=== PATIENT | female | born 1950 | race Native Hawaiian/Other Pacific Islander ===

== ENCOUNTER 2018-07-12 08:36 | Outpatient (CLI) | payer MEDICAID ==
--- NOTE | 2018-07-12 13:39 | DEXA Report ---
Reason: POSTMENOPAUSAL Procedure Date: 07/12/2018 Accession Number: [id number] / [id number] Procedure: DEX - Dexa Spine and/or Hip CPT Code: FULL RESULT: EXAM: Dexa Spine and/or Hip DATE: 07/12/2018 9:09 AM CLINICAL HISTORY: POSTMENOPAUSAL TECHNIQUE: Dual energy x-ray absorptiometry (DXA) was performed on a [employer] System. Regions measured are the AP Spine, femoral neck, and if needed forearm. COMPARISON: None. In accordance with the International Society for Clinical Densitometry (ISCD) guidelines, data from previous exams may be reanalyzed using current recommendations and techniques. This is done to allow a more accurate basis for comparison with the current study. FINDINGS: The data for the lumbar spine is as follows: BMD (g/cm/cm) T-SCORE Z-SCORE REGION L1 0.606 -4.4 L2 0.683 -4.3 L3 0.933 -2.2 L4 0.942 -2.2 TOTAL 0.798 -3.2 NOTE: All evaluable vertebrae are used for classification The data for the hip is as follows: BMD (g/cm/cm) T-SCORE Z-SCORE REGION Neck 0.665 -2.7 TOTAL 0.619 -3.1 NOTE: The femoral neck or total proximal femur, whichever is lowest, is used for classification. * Denotes significant change at the 95% confidence level. Denotes dissimilar scan types or analysis methods. IMPRESSION: THE WHO CLASSIFICATION BASED ON THE INTERNATIONAL REFERENCE STANDARD IS OSTEOPOROSIS. THE FRACTURE RISK IS HIGH. RECOMMENDATION: Patients with diagnosis of osteoporosis or osteopenia should have regular bone mineral density assessment. For those eligible for Medicare, routine testing is allowed once every 2 years. Testing frequency can be increased for patients who have rapidly progressing disease or for those who are receiving medical therapy to restore bone mass. COMMENT: World Health Organization (WHO) definitions for osteoporosis and osteopenia: NORMAL BMD: T-score at -1.0 or higher, fracture risk is low OSTEOPENIA BMD: T-score between -1.0 and -2.5, fracture risk is increased. OSTEOPOROSIS BMD: T-score at -2.5 or lower, fracture risk is high. National Osteoporosis Foundation recommends: 1. Obtain adequate dietary calcium (at least 1200 mg per day) and vitamin D (400-800 international units per day). 2. Participate, as appropriate, in regular weightbearing and muscle-strengthening exercise. 3. Avoid tobacco use and reduce alcohol and caffeine intake. 4. For more detailed information see the website at www.NOF.org.
== END 2018-07-12 08:37 | disposition home or self-care (01) ==
LOC: DI 08:36
PROVIDERS: ATTEND Family Medicine
DX: M81.0 Age-related osteoporosis without current pathological fracture (principal)
CPT/HCPCS: 77080

== ENCOUNTER 2019-02-19 00:55 | Outpatient (CLI) | payer MEDICAID | END 2019-02-19 00:56 | disposition critical access hospital (66) | LOC: EMS 00:55 | PROVIDERS: ATTEND Surgery | DX: R55 Syncope and collapse (principal) | CPT/HCPCS: A0425; A0427; A0999 ==

== ENCOUNTER 2019-02-19 01:14 | Emergency (ER) | payer MEDICAID ==
[2019-02-19 07:42] VITALS: BP 128/68
[2019-02-19 08:14] LABS: BASOPHILS % (AUTO) 0.7 %; EOSINOPHILS # (AUTO) 0.2 10^3/uL (0.0-0.7); EOSINOPHILS % (AUTO) 4.5 %; HGB - HEMOGLOBIN 11.7 g/dL (12.0-16.0); LYMPHOCYTES # (AUTO) 1.4 10^3/uL (1.5-3.5); MEAN CORPUSCULAR HGB CONC 34.6 g/dL (32.0-36.0); MEAN CORPUSCULAR VOLUME 89.7 fL (81.0-99.0); MEAN PLATELET VOLUME 9.4 fL (7.9-10.8); MONOCYTES # (AUTO) 0.5 10^3/uL (0.0-1.0); NEUTROPHILS # (AUTO) 3.2 10^3/uL (1.5-6.6); NEUTROPHILS % (AUTO) 59.6 %; PLT - PLATELET COUNT 169 10^3/uL (130-450); RED BLOOD COUNT 3.77 10^6/uL (4.20-5.40); RED CELL DISTRIBUTION WIDTH 11.6 % (12.0-15.0); WHITE BLOOD COUNT 5.4 x10^3/uL (4.8-10.8)
[2019-02-19 08:23] LABS: CALCIUM 8.8 mg/dL (8.5-10.3); CREATININE 0.7 mg/dL (0.4-1.0)
[2019-02-19 08:25] LABS: BILIRUBIN,URINE NEGATIVE (NEGATIVE); CLARITY,URINE CLEAR (CLEAR); GLUCOSE, URINE (UA) NEGATIVE (NEGATIVE); KETONES,URINE (UA) NEGATIVE (NEGATIVE); LEUKOCYTE ESTERASE, URINE TRACE (NEGATIVE); NITRITE,URINE NEGATIVE (NEGATIVE); OCCULT BLOOD,URINE NEGATIVE (NEGATIVE); PH,URINE 7.5 PH (5.0-7.5); PROTEIN,URINE NEGATIVE (NEGATIVE); UROBILINOGEN,URINE 0.2 (NORMAL) E.U./dL (NORMAL)
[2019-02-19 08:31] LABS: BACTERIA,URINE Rare /HPF (None Seen); RBC,URINE None Seen /HPF (0-5); SQUAMOUS EPITHELIAL CELL,UR MOD Squamous (<= Few)
--- NOTE | 2019-02-19 09:20 | CT Report ---
Reason: SYNCOPE Procedure Date: 02/19/2019 Accession Number: [id number] / [id number] Procedure: CT - HEAD WO CPT Code: FULL RESULT: EXAM: CT HEAD EXAM DATE: 02/19/2019 03:13 AM. CLINICAL HISTORY: Syncope. COMPARISON: None. TECHNIQUE: Multiaxial CT images were obtained from the foramen magnum to the vertex. Reformats: Sagittal and coronal. IV contrast: None. In accordance with CT protocol optimization, one or more of the following dose reduction techniques were utilized for this exam: automated exposure control, adjustment of mA and/or KV based on patient size, or use of iterative reconstructive technique. FINDINGS: Parenchyma: No intraparenchymal hemorrhage. No evidence of mass, midline shift, or CT findings of acute infarction. Rubio-white differentiation is distinct. Mild diffuse chronic microangiopathic white matter changes are evident. Extraaxial Spaces: Normal for age. No subdural or epidural collections identified. Ventricles: The ventricles and cortical sulci are moderately enlarged, consistent with age-related tissue loss. Sinuses and Orbits: Left-sided phthisis bulbi is present. Postsurgical changes from a cataract extraction are noted in the right globe. The paranasal and mastoid sinuses are not opacified. Bones: No evidence of fracture or calvarial defect. Other: Extensive intracranial atherosclerosis is present. IMPRESSION: Generalized age-related cortical atrophic changes without evidence of acute intracranial abnormality. RADIA
--- NOTE | 2019-02-19 09:21 | XRAY Report ---
Reason: SYNCOPE Procedure Date: 02/19/2019 Accession Number: [id number] / [id number] Procedure: XR - Chest 2 View X-Ray CPT Code: 93480 FULL RESULT: EXAM: CHEST RADIOGRAPHY EXAM DATE: 02/19/2019 05:46 AM. CLINICAL HISTORY: Syncope. COMPARISON: None. TECHNIQUE: 2 views. FINDINGS: Lungs/Pleura: No alveolar consolidation or pleural effusion seen. No pneumothorax. Mediastinum: Heart size is normal. Aortic atherosclerosis. Other: Osteopenia. Calcific tendinitis in the right rotator cuff. IMPRESSION: 1. No acute abnormality seen in the chest. RADIA
== END 2019-02-19 07:42 | disposition home or self-care (01) ==
LOC: ED 01:14
DX: E87.1 Hypo-osmolality and hyponatremia (principal); R55 Syncope and collapse; H02.402 Unspecified ptosis of left eyelid
CPT/HCPCS: 70450; 71046; 80048; 81001; 81003; 84484; 85025; 93005; 99282; 99283

== ENCOUNTER 2021-09-17 04:32 | Outpatient (CLI) | payer MEDICAID | END 2021-09-17 04:33 | disposition critical access hospital (66) | LOC: EMS 04:32 | DX: R41.82 Altered mental status, unspecified (principal); R53.83 Other fatigue; X31.XXXA Exposure to excessive natural cold, initial encounter | CPT/HCPCS: A0425; A0429; A0999 ==

== ENCOUNTER 2021-09-17 04:53 | Emergency (ER) | payer MEDICAID ==
[2021-09-17 05:14] VITALS: BP 181/95
--- NOTE | 2021-09-17 05:35 | ED Physician Documentation ---
PD HPI ALTERED MENTAL STATUS - Stated complaint Stated Complaint: AMS - Chief complaint Chief Complaint: MHE - History obtained from History obtained from: EMS - History of Present Illness Timing - onset: Unknown Quality / character: Confused - Additional information Additional information: BIBA. Per EMS report, someone called 911 when they noticed patient outside on sidewalk seemingly confused. Police assessed patient then called EMS. Patient is nonverbal for my HPI. She has no ID and thus cannot contribute to HPI/ROS. Between police and EMS, they were able to get patient to say her name is Amy. After repeated attempts, EMS was able to get patient to say her last name but they could only discern the first syllable. Patient is in NAD, awake, but does not verbalize, does not follow commands. She is calm. Review of Systems Unable to obtain: AMS PD PAST MEDICAL HISTORY - Past Medical History Other Past Medical History: unknown - Present Medications Home Medications: Ambulatory Orders Medication Instructions Recorded Confirmed cephALEXin [Keflex] 500 mg PO Q6H #20 cap 09/18/21 - Allergies Allergies/Adverse Reactions: Allergies Allergy/AdvReac Type Severity Reaction Status Date / Time Unable to Assess Allergy Verified 09/17/21 07:00 PD ED PE NORMAL - Vitals Vital signs reviewed: Yes (a) - General General: Other (awake, alert, nonverbal, does not follow commands) - HEENT HEENT: Atraumatic, Other (left eye: completely opqaue cornea) - Neck Neck: Supple, no meningeal sign - Cardiac Cardiac: RRR, No murmur - Respiratory Respiratory: No respiratory distress, Clear bilaterally - Abdomen Abdomen: Soft, Non tender - Derm Derm: Normal color, Warm and dry - Extremities Extremities: No edema Results - Vitals Vitals: Oxygen O2 Source Room air - Labs Labs: Microbiology 09/17/21 08:33 Urine Culture - Preliminary Urine,Clean Catch Escherichia Coli Laboratory Tests 09/17/21 09/17/21 09/17/21 06:50 06:50 08:33 WBC 6.3 L RBC 4.16 Hgb 13.0 L Hct 38.0 L MCV 91.3 L MCH 31.3 MCHC 34.2 RDW 12.8 Plt Count 286 MPV 9.2 Neut # (Auto) 4.7 L Lymph # (Auto) 1.1 L [place] # (Auto) 0.3 Eos # (Auto) 0.1 Baso # (Auto) 0.0 Absolute Nucleated RBC 0.00 Nucleated RBC % 0.0 Sodium 129 L Potassium 4.0 Chloride 92 L Carbon Dioxide 26 Anion Gap 11.0 BUN 21 H Creatinine 0.9 Estimated GFR (MDRD) 61 L Glucose 76 Calcium 9.7 Total Bilirubin 0.9 AST 34 ALT 25 Alkaline Phosphatase 41 L Total Protein 8.1 Albumin 4.5 Globulin 3.6 Albumin/Globulin Ratio 1.3 Lipase 50 Urine Color YELLOW Urine Clarity CLEAR Urine pH 7.5 Ur Specific [place] 1.015 Urine Protein NEGATIVE Urine Glucose (UA) NEGATIVE Urine Ketones NEGATIVE Urine Occult Blood NEGATIVE Urine Nitrite POSITIVE H Urine Bilirubin NEGATIVE Urine Urobilinogen 0.2 (NORMAL) Ur Leukocyte Esterase LARGE H Urine RBC 0-5 Urine WBC >25 H Urine WBC Clumps PRESENT Ur Squamous Epith Cells FEW Squamous Urine Bacteria Few Ur Microscopic Review INDICATED Urine Culture Comments INDICATED PD MEDICAL DECISION MAKING - ED course Complexity details: considered differential, d/w family ED course: Patient is in NAD, wearing weather-appropriate coat but likely was outside for some time, given how cool to touch she feels when she first arrives. She is nonverbal for me. Using the first name and first syllable of last name (using different possibilities, such as Cam, Theo, Omar), I was eventually able to find Amy Aguayo in [employer]. Unfortunately, there is no patient photo nor photo ID scanned in. There is only one ED visit and this was when [employer] was down. Luckily, the hand-written note is scanned in and indicates similar mental status as well as the left eye opacity. I tried to contact the (contact) number in [employer] which indicates it is the nieces number. Unfortunately, the male who answered the phone says the route driver salesperson is not at this number and he does not know who this patient is. Patient is held in ED and in the morning, patients niece arrives to ED. She had been at work when family contacted her to tell her patient had gone missing from where they live. Niece contacted police who told her that patient is in our ED. Niece tells me that patient is acting appropriately for her baseline and niece does not see any unusual behavior or indications that she is in pain. Niece says patient has dementia and this is her baseline. She is happy to take her back home Departure - Departure Disposition: Home, Self Care Clinical Impression: UTI (urinary tract infection) Dementia Qualifiers: Dementia type: unspecified type Dementia behavioral disturbance: without behavioral disturbance Qualified Code(s): F03.90 - Unspecified dementia without behavioral disturbance Condition: Good Instructions: ED Confusion Follow-Up: Tiffanie Atkinson MD [Primary Care Provider] - Prescriptions: cephALEXin [Keflex] 500 mg PO Q6H #20 cap Discharge Date/Time: 09/17/21 08:44
[2021-09-17 06:56] LABS: BASOPHILS % (AUTO) 0.5 %; EOSINOPHILS # (AUTO) 0.1 10^3/uL (0.0-2.0); EOSINOPHILS % (AUTO) 1.6 %; LYMPHOCYTES # (AUTO) 1.1 10^3/uL (2.5-10.5); LYMPHOCYTES % (AUTO) 16.8 %; MEAN CORPUSCULAR HEMOGLOBIN 31.3 pg (28.0-40.0); MEAN CORPUSCULAR HGB CONC 34.2 g/dL (32.0-36.0); MEAN CORPUSCULAR VOLUME 91.3 fL (94.0-114.0); MEAN PLATELET VOLUME 9.2 fL; MONOCYTES # (AUTO) 0.3 10^3/uL (0.0-3.5); MONOCYTES % (AUTO) 5.1 %; NEUTROPHILS # (AUTO) 4.7 10^3/uL (6.0-23.5); NEUTROPHILS % (AUTO) 75.7 %; PLT - PLATELET COUNT 286 10^3/uL (130-450); RED BLOOD COUNT 4.16 10^6/uL (4.10-6.70); RED CELL DISTRIBUTION WIDTH 12.8 % (12.0-15.0); WHITE BLOOD COUNT 6.3 x10^3/uL (9.0-30.0)
[2021-09-17 07:12] LABS: ALBUMIN 4.5 g/dL (3.2-5.5); ALBUMIN/GLOBULIN RATIO 1.3 (1.0-2.2); BILIRUBIN,TOTAL 0.9 mg/dL (0.2-1.0); CALCIUM 9.7 mg/dL (8.5-10.3); CREATININE 0.9 mg/dL (0.4-1.0); TOTAL PROTEIN 8.1 g/dL (6.7-8.2)
[2021-09-17 09:17] LABS: BILIRUBIN,URINE NEGATIVE (NEGATIVE); GLUCOSE, URINE (UA) NEGATIVE (NEGATIVE); KETONES,URINE (UA) NEGATIVE (NEGATIVE); LEUKOCYTE ESTERASE, URINE LARGE (NEGATIVE); NITRITE,URINE POSITIVE (NEGATIVE); OCCULT BLOOD,URINE NEGATIVE (NEGATIVE); PH,URINE 7.5 PH (5.0-7.5); PROTEIN,URINE NEGATIVE (NEGATIVE); UROBILINOGEN,URINE 0.2 (NORMAL) E.U./dL (NORMAL)
[2021-09-17 09:22] LABS: CLARITY,URINE CLEAR (CLEAR)
[2021-09-17 09:31] LABS: BACTERIA,URINE Few /HPF (None Seen); RBC,URINE 0-5 /HPF (0-5); SQUAMOUS EPITHELIAL CELL,UR FEW Squamous (<= Few); WBC CLUMPS,URINE PRESENT; WBC,URINE >25 /HPF (0-5)
--- NOTE | 2021-09-18 13:20 | ED Physician Documentation ---
ED Addendum - Addendum Addendum: 09/18/21 13:20 Urine culture is positive for an E. coli UTI. Will place on Keflex. Spoke with the patient's daughter, Lashell. The prescription [facility] be [facility] in [place]. Departure - Departure Disposition: 01 Home, Self Care Clinical Impression: Dementia Qualifiers: Dementia type: unspecified type Dementia behavioral disturbance: without behavioral disturbance Qualified Code(s): F03.90 - Unspecified dementia without behavioral disturbance UTI (urinary tract infection) Qualifiers: Urinary tract infection type: acute cystitis Hematuria presence: without hematuria Qualified Code(s): N30.00 - Acute cystitis without hematuria Condition: Good Instructions: ED Confusion Follow-Up: Tiffanie Atkinson MD [Primary Care Provider] - Prescriptions: cephALEXin [Keflex] 500 mg PO Q6H #20 cap Discharge Date/Time: 09/17/21 08:44
== END 2021-09-17 08:44 | disposition home or self-care (01) ==
LOC: EDBD → ED 04:53 → MERGE 04:53 → ED 08:44
DX: N39.0 Urinary tract infection, site not specified (principal); F03.90 Unspecified dementia, unspecified severity, without behavioral disturbance, psychotic disturbance, mood disturbance, and anxiety
CPT/HCPCS: 36415; 80053; 81001; 81003; 83690; 85025; 87086; 87181; 99281; 99283

== ENCOUNTER 2023-08-16 14:03 | Outpatient (CLI) | payer MEDICAID | END 2023-08-16 14:04 | disposition critical access hospital (66) | LOC: EMS 14:03 | DX: R41.0 Disorientation, unspecified (principal); R25.9 Unspecified abnormal involuntary movements | CPT/HCPCS: A0425; A0429; A0999 ==

== ENCOUNTER 2023-08-16 14:24 | Emergency (ER) | payer MEDICAID ==
[2023-08-16 15:10] LABS: BASOPHILS % (AUTO) 0.3 %; EOSINOPHILS % (AUTO) 0.2 %; HCT - HEMATOCRIT 35.2 % (37.0-47.0); HGB - HEMOGLOBIN 11.9 g/dL (12.0-16.0); LYMPHOCYTES # (AUTO) 0.4 10^3/uL (1.5-3.5); LYMPHOCYTES % (AUTO) 3.5 %; MEAN CORPUSCULAR HGB CONC 33.8 g/dL (32.0-36.0); MEAN CORPUSCULAR VOLUME 91.7 fL (81.0-99.0); MEAN PLATELET VOLUME 10.9 fL (7.9-10.8); MONOCYTES # (AUTO) 0.5 10^3/uL (0.0-1.0); MONOCYTES % (AUTO) 4.5 %; NEUTROPHILS # (AUTO) 10.9 10^3/uL (1.5-6.6); NEUTROPHILS % (AUTO) 91.1 %; PLT - PLATELET COUNT 150 10^3/uL (130-450); RED BLOOD COUNT 3.84 10^6/uL (4.20-5.40); RED CELL DISTRIBUTION WIDTH 12.6 % (12.0-15.0)
--- NOTE | 2023-08-16 15:30 | ED Physician Documentation ---
History of Present Illness - Stated complaint Stated Complaint: AMS - Chief complaint Chief Complaint: General - History obtained from History obtained from: Family - History of Present Illness Timing: Today - Additonal information Additional information: Patient is a 73-year-old female who lives at home with family. Has severe dementia. Family states that today patient has been sleeping more than usual today and was harder to wake up from her nap. The patient also reportedly said that she had pain but could not say where any of the pain was. The family does not believe that she has fallen or injured herself. No fevers. No chills. No vomiting. No diarrhea. She is a diabetic and her blood sugar was 370. Family states she has been taking her medications as prescribed. No falls. No trauma. Nothing makes it better or worse. Family states the patient still is yawning and sleeping more than usual upon arrival to the emergency department. Review of Systems Unable to obtain: Dementia Constitutional: denies: Fever GI: denies: Vomiting Skin: denies: Rash PD PAST MEDICAL HISTORY - Past Medical History Past Medical History: Yes Cardiovascular: Hypertension, High cholesterol Neuro: Dementia Endocrine/Autoimmune: Type 2 diabetes - Present Medications Home Medications: Ambulatory Orders Medication Instructions Recorded Confirmed cephALEXin [Keflex] 500 mg PO Q6H #20 cap 09/18/21 Cefdinir 300 mg PO BID #20 cap 08/16/23 - Allergies Allergies/Adverse Reactions: Allergies Allergy/AdvReac Type Severity Reaction Status Date / Time No Known Drug Allergies Allergy Verified 08/16/23 14:40 - Social History Does the pt smoke?: No Smoking Status: Never smoker Does the pt drink ETOH?: No Does the pt have substance abuse?: No - Immunizations Immunizations are current?: Yes - POLST Patient has POLST: No PD ED PE NORMAL - Vitals Vital signs reviewed: Yes - General General: Other (Sleeping, easily arousable. Opens her eyes, mumbles words and falls back asleep) - HEENT HEENT: Atraumatic, PERRL, Other (Dry lips and tongue) - Neck Neck: Supple, no meningeal sign - Cardiac Cardiac: RRR - Respiratory Respiratory: No respiratory distress, Clear bilaterally - Abdomen Abdomen: Soft, Other (Mild diffuse tenderness to palpation. No peritoneal signs) - Derm Derm: Warm and dry - Extremities Extremities: Other (Moves all extremities) - Neuro Neuro: Other (Sleeping but easily arousable.) - Psych Psych: Normal mood, Normal affect Results - Vitals Vitals: Vital Signs - 24 hr 08/16/23 08/16/23 08/16/23 14:30 15:22 16:42 Temperature 36.9 C 37.7 C 36.6 C Heart Rate 89 83 Respiratory 20 18 Rate Blood Pressure 167/154 H O2 Saturation 96 98 08/16/23 18:36 Temperature 36.3 C L Heart Rate 77 Respiratory 15 Rate Blood Pressure 157/94 H O2 Saturation 96 Oxygen O2 Source Room air - EKG (time done) 1511 EKG releavant findings:: EKG personally interpreted by author of this note. Relevant findings are: Rate: Rate (enter#) (88) Rhythm: NSR [place]: Normal Intervals: Normal MO QRS: Normal, LVH Ischemia: T wave inversion (V4 to V5), Other (LVH with repol) - Labs Labs: Laboratory Tests 08/16/23 08/16/23 08/16/23 14:47 14:47 15:36 WBC 12.0 H RBC 3.84 L Hgb 11.9 L Hct 35.2 L MCV 91.7 MCH 31.0 MCHC 33.8 RDW 12.6 Plt Count 150 MPV 10.9 H Neut # (Auto) 10.9 H Lymph # (Auto) 0.4 L [place] # (Auto) 0.5 Eos # (Auto) 0.0 Baso # (Auto) 0.0 Absolute Nucleated RBC 0.00 Nucleated RBC % 0.0 Sodium 132 L Potassium 3.9 Chloride 95 L Carbon Dioxide 29 Anion Gap 8.0 BUN 16 Creatinine 1.0 Estimated GFR (MDRD) 54 L Glucose 383 H Calcium 9.5 Total Bilirubin 0.7 AST 41 ALT 63 H Alkaline Phosphatase 145 H Total Protein 7.5 Albumin 4.1 Globulin 3.4 Albumin/Globulin Ratio 1.2 Lipase 25 Urine Color Urine Clarity Urine pH Ur Specific [place] Urine Protein Urine Glucose (UA) Urine Ketones Urine Occult Blood Urine Nitrite Urine Bilirubin Urine Urobilinogen Ur Leukocyte Esterase Urine RBC Urine WBC Urine WBC Clumps Ur Squamous Epith Cells Urine Bacteria Ur Microscopic Review Urine Culture Comments Nasal Adenovirus (PCR) NOT DETECTED Nasal B. parapertussis DNA (PCR) NOT DETECTED Nasal Coronavir 229E PCR NOT DETECTED Nasal Coronavir HKU1 PCR NOT DETECTED Nasal Coronavir NL63 PCR NOT DETECTED Nasal Coronavir OC43 PCR NOT DETECTED Nasal Enterovir/Rhinovir PCR NOT DETECTED Nasal Influenza B PCR NOT DETECTED Nasal Influenza A PCR NOT DETECTED Nasal Parainfluen 1 PCR NOT DETECTED Nasal Parainfluen 2 PCR NOT DETECTED Nasal Parainfluen 3 PCR NOT DETECTED Nasal Parainfluen 4 PCR NOT DETECTED Nasal RSV (PCR) NOT DETECTED Nasal B.pertussis DNA PCR NOT DETECTED Nasal C.pneumoniae (PCR) NOT DETECTED Dylan Human Metapneumo PCR NOT DETECTED Nasal M.pneumoniae (PCR) NOT DETECTED Nasal SARS-CoV-2 (PCR) NOT DETECTED 08/16/23 16:34 WBC RBC Hgb Hct MCV MCH MCHC RDW Plt Count MPV Neut # (Auto) Lymph # (Auto) [place] # (Auto) Eos # (Auto) Baso # (Auto) Absolute Nucleated RBC Nucleated RBC % Sodium Potassium Chloride Carbon Dioxide Anion Gap BUN Creatinine Estimated GFR (MDRD) Glucose Calcium Total Bilirubin AST ALT Alkaline Phosphatase Total Protein Albumin Globulin Albumin/Globulin Ratio Lipase Urine Color YELLOW Urine Clarity SL. CLOUDY Urine pH 7.0 Ur Specific [place] 1.010 Urine Protein NEGATIVE Urine Glucose (UA) >=1000 H Urine Ketones TRACE Urine Occult Blood TRACE-INTA Urine Nitrite NEGATIVE Urine Bilirubin NEGATIVE Urine Urobilinogen 0.2 (NORMAL) Ur Leukocyte Esterase SMALL H Urine RBC 3 Urine WBC 11-25 H Urine WBC Clumps PRESENT Ur Squamous Epith Cells NONE SEEN Urine Bacteria Many H Ur Microscopic Review INDICATED Urine Culture Comments INDICATED Nasal Adenovirus (PCR) Nasal B. parapertussis DNA (PCR) Nasal Coronavir 229E PCR Nasal Coronavir HKU1 PCR Nasal Coronavir NL63 PCR Nasal Coronavir OC43 PCR Nasal Enterovir/Rhinovir PCR Nasal Influenza B PCR Nasal Influenza A PCR Nasal Parainfluen 1 PCR Nasal Parainfluen 2 PCR Nasal Parainfluen 3 PCR Nasal Parainfluen 4 PCR Nasal RSV (PCR) Nasal B.pertussis DNA PCR Nasal C.pneumoniae (PCR) Dylan Human Metapneumo PCR Nasal M.pneumoniae (PCR) Nasal SARS-CoV-2 (PCR) - Rads (name of study) head ct Relevant Findings:: Final report received, See rad report ct abd/pelvis Relevant Findings:: Final report received, See rad report PD Medical Decision Making - ED course Complexity details: reviewed results, re-evaluated patient, considered differential, d/w family ED course: Patient received IV fluids in the emergency department. She also received IV Rocephin for UTI. She appears to be back to her normal baseline. She is awake, sitting up eyes open. Family confirms this is her normal baseline. No acute findings on head CT or CT of the abdomen pelvis. We will continue the antibiotics at home. Appears that her altered mental status is likely secondary to her UTI. No evidence of sepsis. Family counseled regarding signs and symptoms for which I believe and urgent re-evaluation would be necessary. Family with good understanding of and agreement to plan and is comfortable going home at this time This document was made in part using voice recognition software. While efforts are made to proofread this document, sound alike and grammatical errors may occur. Patient is not hypotensive. No fever. Departure - Departure Disposition: Home, Self Care Clinical Impression: Dehydration UTI (urinary tract infection) Qualifiers: Urinary tract infection type: acute cystitis Hematuria presence: without hematuria Qualified Code(s): N30.00 - Acute cystitis without hematuria Condition: Good Instructions: ED Dehydration, ED UTI Cystitis Female Follow-Up: Tiffanie Atkinson MD [Primary Care Provider] - Within 1 week Prescriptions: Cefdinir 300 mg PO BID #20 cap Comments: Your prescription was sent to [facility] in [facility]. Please take all antibiotics until gone. Please follow-up with your doctor for further care. You are given IV fluids and IV Rocephin which is an antibiotic here tonight. You appear improved. There are no acute findings on your head CT. Your abdominal and pelvis CT is consistent with a bladder infection and constipation. Incompletely imaged 0.5 cm nodular density right lower lobe. Recommend outpatient chest CT for further characterization. Forms: PCP List Discharge Date/Time: 08/16/23 18:50
[2023-08-16 15:38] LABS: ALBUMIN 4.1 g/dL (3.2-5.5); ALBUMIN/GLOBULIN RATIO 1.2 (1.0-2.2); BILIRUBIN,TOTAL 0.7 mg/dL (0.2-1.0); CALCIUM 9.5 mg/dL (8.5-10.3); POTASSIUM 3.9 mmol/L (3.5-4.5); TOTAL PROTEIN 7.5 g/dL (6.4-8.9)
[2023-08-16] MEDS: SODIUM CHLORIDE 0.9% 1,000 ML IV STA (15:39)
[2023-08-16] MEDS: iohexoL-300 100 ML VIAL IVP ONE (16:06)
[2023-08-16 16:32] LABS: B. PARAPERTUSSIS- RESP PCR PAN NOT DETECTED; B. PERTUSSIS- RESP PCR PANEL NOT DETECTED; C. PNEUMONIAE- RESP PCR PANEL NOT DETECTED; CORONAVIRUS 229E-RESP PCR NOT DETECTED; CORONAVIRUS HKU1-RESP PCR NOT DETECTED; CORONAVIRUS NL63-RESP PCR NOT DETECTED; CORONAVIRUS OC43-RESP PCR NOT DETECTED; HUMAN METAPNEUMOVIRUS NOT DETECTED; INFLUENZA A- RESP PCR PANEL NOT DETECTED; INFLUENZA B - RESP PCR PANEL NOT DETECTED; M. PNEUMONIAE- RESP PCR PANEL NOT DETECTED; PARAINFLUENZA VIRUS 1 NOT DETECTED; PARAINFLUENZA VIRUS 2 NOT DETECTED; PARAINFLUENZA VIRUS 3 NOT DETECTED; PARAINFLUENZA VIRUS 4 NOT DETECTED; RHINOVIRUS/ENTEROVIRUS NOT DETECTED; RSV- RESP PCR PANEL NOT DETECTED; SARS-CoV-2 -RESP PCR PANEL NOT DETECTED
--- NOTE | 2023-08-16 16:35 | CT Report ---
PROCEDURE: HEAD WO INDICATIONS: altered mental status TECHNIQUE: Noncontrast 4.5 mm thick angled axial sections acquired from the foramen magnum to the vertex. For r adiation dose reduction, the following was used: automated exposure control, adjustment of mA and/or kV according to patient size. COMPARISON: CT head 02/19/2019. FINDINGS: Image quality: Excellent. CSF spaces: Basal cisterns are patent. No extra-axial fluid collections. Ventricles are normal in size and shape. Brain: No midline shift. No intracranial masses or hemorrhage. Age-related global volume loss and c hronic microvascular ischemic changes. Intracranial atherosclerotic vascular calcifications. Rubio-wh ite matter interface is normal. Skull and face: Calvarium and visualized facial bones are intact, without suspicious lesions. Left globe phthisis bulbi, stable. Sinuses: Visualized sinuses and mastoids are clear. IMPRESSION: No acute intracranial pathology. Reviewed by: Ravi Woodard MD on 08/16/2023 4:33 PM PST Approved by: Ravi Woodard MD on 08/16/2023 4:33 PM PST Station ID: [id number]
[2023-08-16 17:00] LABS: BILIRUBIN,URINE NEGATIVE (NEGATIVE); GLUCOSE, URINE (UA) >=1000 mg/dL (NEGATIVE); KETONES,URINE (UA) TRACE mg/dL (NEGATIVE); LEUKOCYTE ESTERASE, URINE SMALL (NEGATIVE); NITRITE,URINE NEGATIVE (NEGATIVE); OCCULT BLOOD,URINE TRACE-INTA (NEGATIVE); PROTEIN,URINE NEGATIVE (NEGATIVE); UROBILINOGEN,URINE 0.2 (NORMAL) E.U./dL (NORMAL)
[2023-08-16 17:07] LABS: CLARITY,URINE SL. CLOUDY (CLEAR)
[2023-08-16 17:16] LABS: BACTERIA,URINE Many /HPF (None Seen); RBC,URINE 3 /HPF (0-5); SQUAMOUS EPITHELIAL CELL,UR NONE SEEN (<= Few); WBC CLUMPS,URINE PRESENT
[2023-08-16] MEDS: cefTRIAXone 1 GM VIAL IVP STA (17:37)
--- NOTE | 2023-08-16 18:22 | CT Report ---
PROCEDURE: ABDOMEN/PELVIS W INDICATIONS: diffuse abd pain CONTRAST: 75ml omni 300 TECHNIQUE: After the administration of intravenous contrast, 5 mm thick sections acquired from the diaphragms to the symphysis. 5 mm thick coronal and sagittal reformats were acquired. For radiation dose reducti on, the following was used: automated exposure control, adjustment of mA and/or kV according to rhianna ent size. COMPARISON: None FINDINGS: Image quality: Diagnostic. Lung bases and heart: Incompletely imaged 1.5 cm nodular density in the right lower lobe. Heart size is normal. Atherosclerotic calcifications. Liver: Hepatic steatosis. Gallbladder and biliary tree: Surgically absent. No biliary dilation, accounting for post-cholecystec enzo state. Spleen: No splenomegaly. Pancreas: No pancreatic ductal dilation. Adrenals: No adrenal nodule. Kidneys and ureters: Right kidney is normal in appearance. No hydronephrosis. No cystic lesion which requires follow up. There is mild atrophy of the left kidney. Somewhat striated appearance of renal c ortical enhancement of the left kidney. Minimal prominence of the left renal pelvis without hydroneph rosis. No significant perinephric stranding on the left. Bowel and peritoneum: There is a very large amount of fecal material seen throughout the distended co denia. Multiple fluid-filled loops of small bowel seen throughout the abdomen without evidence for smal l bowel obstruction. Lymph nodes: No central or retroperitoneal adenopathy. Vessels: No infrarenal aortic aneurysm. Moderate atherosclerotic vascular calcifications. PELVIS Reproductive organs: The uterus appears to be displaced to the left with likely calcified uterine fib roids. Bladder: Urinary bladder is moderately distended. Pelvic lymph nodes: No pelvic adenopathy by size criteria. Bones: Diffuse osteopenia. Age-indeterminate but likely chronic compression fractures involving the T 12, L2, and L3 vertebral bodies. Multilevel spondylosis. Other: No significant ventral or inguinal hernia. IMPRESSION: 1. Large amount of fecal burden seen throughout the descending colon. Findings are likely related to constipation. No acute inflammatory changes. 2. Moderate urinary bladder distention. There is suggestion of mild striated renal cortical enhanceme nt of the left kidney possibly related to pyelonephritis if clinically appropriate. No hydronephrosis identified. Recommend laboratory correlation. 3. Incompletely imaged 0.5 cm nodular density right lower lobe. Recommend outpatient chest CT for fur ther characterization. 4. Status post cholecystectomy. 5. Atherosclerosis. Reviewed by: Nuno Escobedo MD on 08/16/2023 6:21 PM PST Approved by: Nuno Escobedo MD on 08/16/2023 6:21 PM PST Station ID: [id number]
[2023-08-16 18:39] VITALS: BP 157/94; O2SAT 96
== END 2023-08-16 18:50 | disposition home or self-care (01) ==
LOC: EDUNIT# → ED 14:24
DX: N30.00 Acute cystitis without hematuria (principal); B96.1 Klebsiella pneumoniae [K. pneumoniae] as the cause of diseases classified elsewhere; E86.0 Dehydration; F03.C0 Unspecified dementia, severe, without behavioral disturbance, psychotic disturbance, mood disturbance, and anxiety; I10 Essential (primary) hypertension; E78.00 Pure hypercholesterolemia, unspecified; E11.9 Type 2 diabetes mellitus without complications; Z11.52 Encounter for screening for COVID-19
CPT/HCPCS: 36415; 70450; 74177; 80053; 81001; 83690; 85025; 87077; 87086; 87181; 87633; 93005; 96361; 96374; 99283; 99284; Q9967; 81003

== ENCOUNTER 2023-09-19 14:58 | Outpatient (CLI) | payer MEDICAID ==
--- NOTE | 2023-09-27 15:55 | Mammography Report ---
BILATERAL DIGITAL SCREENING MAMMOGRAM 3D/2D: 09/19/2023 CLINICAL: Routine screening. Comparison is made to exam dated: 12/26/2017 mammogram - [facility]. There are scattered areas of fibroglandular density in both breasts (category b / 25%-50% glandular t issue). There is an asymmetry in the right breast middle depth central to the nipple seen on the mediolateral oblique view only. No other significant masses, calcifications, or other findings are seen in either breast. IMPRESSION: INCOMPLETE: NEEDS ADDITIONAL IMAGING EVALUATION The asymmetry in the right breast is indeterminate. Additional views with possible ultrasound are re commended. Based on the Tyrer Cuzick model (a risk assessment model) the patient's lifetime risk is 2.9% and her 10 year risk is 2.9%. According to the ACR, ACS, and NCCN guidelines, an annual breast MRI exam bigg g with mammogram is recommended if the patients lifetime risk is 20% or greater. This exam was interpreted at Station ID: [id number]. NOTE: For mammograms, a report in lay terms will be sent to the patient. Approximately 15% of breast malignancies will not be visualized mammographically. In the management of a palpable breast mass, a negative mammogram must not discourage biopsy of a clinically suspicious lesion. Electronically Signed By: Baron Meza M.D. lc/:09/27/2023 10:43:57 ACR BI-RADS Category 0: Incomplete 3340F PARENCHYMAL PATTERN: (A) - The breast(s) demonstrate(s) scattered fibroglandular densities. BI-RADS CATEGORY: (0) - 0 Mammo and [place] [id number] Immediate follow-up LATERALITY: (B)
== END 2023-09-19 14:59 | disposition home or self-care (01) ==
LOC: DI.N 14:58
DX: Z12.31 Encounter for screening mammogram for malignant neoplasm of breast (principal); R92.323 Mammographic fibroglandular density, bilateral breasts; R92.8 Other abnormal and inconclusive findings on diagnostic imaging of breast

== ENCOUNTER 2023-09-21 08:00 | Outpatient (CLI) | payer MEDICAID ==
[2023-09-21 17:57] LABS: BILIRUBIN,URINE NEGATIVE (NEGATIVE); GLUCOSE, URINE (UA) 250 mg/dL (NEGATIVE); KETONES,URINE (UA) NEGATIVE (NEGATIVE); LEUKOCYTE ESTERASE, URINE LARGE (NEGATIVE); NITRITE,URINE POSITIVE (NEGATIVE); OCCULT BLOOD,URINE SMALL (NEGATIVE); PROTEIN,URINE NEGATIVE (NEGATIVE); UROBILINOGEN,URINE 0.2 (NORMAL) E.U./dL (NORMAL)
[2023-09-21 18:28] LABS: CLARITY,URINE HAZY (CLEAR); RBC,URINE TNTC /HPF (0-5); WBC,URINE >25 /HPF (0-5)
[2023-09-21 18:30] LABS: SQUAMOUS EPITHELIAL CELL,UR FEW Squamous (<= Few)
[2023-09-21 18:32] LABS: BACTERIA,URINE Many /HPF (None Seen)
== END 2023-09-21 23:59 | disposition home or self-care (01) ==
LOC: LAB.R 08:00
PROVIDERS: ATTEND Family Medicine
DX: N30.00 Acute cystitis without hematuria (principal); N89.8 Other specified noninflammatory disorders of vagina
CPT/HCPCS: 81001; 87086; 87181

== ENCOUNTER 2023-10-10 08:59 | Outpatient (CLI) | payer MEDICAID ==
--- NOTE | 2023-10-11 09:02 | Mammography Report ---
UNILATERAL RIGHT DIGITAL DIAGNOSTIC MAMMOGRAM 3D/2D WITH LATEROMEDIAL SPOT COMPRESSION: 10/10/2023 CLINICAL: Patient returns today to evaluate an asymmetry in the right breast. Comparison is made to exams dated: 09/19/2023 mammogram - [facility] and 12/26/2017 m ammogram - [facility]. There are scattered areas of fibroglandular density in the right breast (category b / 25%-50% glandul ar tissue). The asymmetry in the right breast middle depth central to the nipple seen on the mediolateral oblique view only is no longer seen and resembles fibroglandular tissue. This is not seen in additional vie ws. The previously noted asymmetry disperses with additional views and is consistent with summation artifact. No other significant masses or calcifications are seen in the breast. IMPRESSION: BENIGN The previously described asymmetry disperses with additional views and is consistent with summation a rtifact. There is no mammographic evidence of malignancy. A 1 year screening mammogram is recommended. Findings and recommendations were conveyed to the patient during today's evaluation. Based on the Tyrer Cuzick model (a risk assessment model) the patient's lifetime risk is 2.9% and her 10 year risk is 2.9%. According to the ACR, ACS, and NCCN guidelines, an annual breast MRI exam bigg g with mammogram is recommended if the patient's lifetime risk is 20% or greater. This exam was interpreted at Station ID: [id number]. NOTE: For mammograms, a report in lay terms will be sent to the patient. Approximately 15% of breast malignancies will not be visualized mammographically. In the management of a palpable breast mass, a negative mammogram must not discourage biopsy of a clinically suspicious lesion. Electronically Signed By: Nuno Escobedo M.D. aty/:10/10/2023 09:39:01 ACR BI-RADS Category 2: Benign Finding(s) 3342F PARENCHYMAL PATTERN: (A) - The breast(s) demonstrate(s) scattered fibroglandular densities. BI-RADS CATEGORY: (2) - 2 Mammogram [id number] 1 year screening LATERALITY: (B)
== END 2023-10-10 09:00 | disposition home or self-care (01) ==
LOC: DI 08:59
PROVIDERS: ATTEND Family Medicine
DX: R92.2 Inconclusive mammogram (principal); R92.321 Mammographic fibroglandular density, right breast

== ENCOUNTER 2023-12-31 08:00 | Outpatient (CLI) | payer MEDICAID | END 2023-12-31 23:59 | disposition home or self-care (01) | LOC: LAB.N 08:00 | PROVIDERS: ATTEND Family Medicine | DX: N30.00 Acute cystitis without hematuria (principal) | CPT/HCPCS: 87086; 87181 ==

== ENCOUNTER 2024-01-03 21:00 | Outpatient (CLI) | payer MEDICAID | END 2024-01-03 21:01 | disposition critical access hospital (66) | LOC: EMS 21:00 | DX: R41.82 Altered mental status, unspecified (principal) | CPT/HCPCS: A0425; A0429; A0999 ==

== ENCOUNTER 2024-01-03 21:22 | Inpatient (IN) | payer MEDICAID ==
--- NOTE | 2024-01-03 21:34 | ED Physician Documentation ---
PD HPI FOCAL NEURO - Stated complaint Stated Complaint: AMS - Chief complaint Chief Complaint: Neuro - History obtained from History obtained from: EMS - Additional information Additional information: 73-year-old woman has history of dementia. Presents by ambulance from home for worsening altered mental status. Reportedly this evening is not talking as much as usual and there was concern for the family that she was not moving 1 side of her body but by the time EMS found her they felt she was moving everything symmetrically again. Prehospital blood sugar was 250. Family not present on arrival but understand from EMS that they are coming in. Reportedly she was recently diagnosed with UTI and the family has called the clinic several times, but they have not been able to get her antibiotics. PD PAST MEDICAL HISTORY - Past Medical History Past Medical History: Yes Cardiovascular: Hypertension, High cholesterol Neuro: Dementia Endocrine/Autoimmune: Type 2 diabetes - Present Medications Home Medications: Ambulatory Orders Medication Instructions Recorded Confirmed Aspirin EC [Ecotrin] 81 mg PO DAILY 01/03/24 01/03/24 Cholecalciferol (Vitamin D3) 1,250 mcg PO ONCE 01/03/24 01/03/24 [Vitamin D3] Cranberry Fruit Extract [Cranberry] 500 mg PO DAILY 01/03/24 01/03/24 Insulin Glargine [Lantus Solostar] 10 unit SUBQ HS 01/03/24 01/03/24 Lisinopril [Zestril] 10 mg PO DAILY 01/03/24 01/03/24 Multivitamin 1 each PO DAILY 01/03/24 01/03/24 Simvastatin [Zocor] 20 mg PO DAILY 01/03/24 01/03/24 metFORMIN [Glucophage] 500 mg PO BIDWM 01/03/24 01/03/24 - Allergies Allergies/Adverse Reactions: Allergies Allergy/AdvReac Type Severity Reaction Status Date / Time No Known Drug Allergies Allergy Verified 01/03/24 21:26 - Social History Does the pt smoke?: No Smoking Status: Never smoker Does the pt drink ETOH?: No Does the pt have substance abuse?: No - Immunizations Immunizations are current?: Yes - POLST Patient has POLST: No PD ED PE NORMAL - Vitals Vital signs reviewed: Yes - General General: No acute distress, Other (She will kind of smile at me and does not follow commands but there is a language barrier. That said she is not talking at all.) - HEENT HEENT: Other (Opacified left globe) - Neck Neck: Supple, no meningeal sign, No bony TTP - Cardiac Cardiac: RRR, No murmur - Respiratory Respiratory: No respiratory distress, Clear bilaterally - Abdomen Abdomen: Non tender - Neuro Eye Opening: Spontaneous Motor: Localizes to Pain Verbal: Incomprehensible GCS Score: 11 Results - Vitals Vitals: Vital Signs - 24 hr 01/03/24 21:27 Temperature 36.6 C Heart Rate 72 Respiratory 16 Rate Blood Pressure 146/82 H O2 Saturation 99 Oxygen O2 Source Room air - EKG (time done) 0 EKG releavant findings:: EKG personally interpreted by author of this note. Relevant findings are: Rate: Rate (enter#) (74) Rhythm: NSR South Range: Normal Intervals: Prolonged WI QRS: Normal Ischemia: Non specific changes. No: ST elevation c/w ischemia Computer interpretation: Agree with computer - Labs Labs: Laboratory Tests 01/03/24 01/03/24 01/03/24 21:42 21:42 21:42 WBC 4.7 L RBC 3.84 L Hgb 11.9 L Hct 33.9 L MCV 88.3 MCH 31.0 MCHC 35.1 RDW 12.3 Plt Count 173 MPV 9.6 Neut # (Auto) 2.6 Lymph # (Auto) 1.6 Mellette # (Auto) 0.4 Eos # (Auto) 0.1 Baso # (Auto) 0.0 Absolute Nucleated RBC 0.00 Nucleated RBC % 0.0 PT 10.7 INR 1.0 Sodium 121 L Potassium 4.1 Chloride 88 L Carbon Dioxide 25 Anion Gap 8.0 BUN 23 H Creatinine 0.9 Estimated GFR (MDRD) 61 L Glucose 236 H Lactic Acid Calcium 9.5 Magnesium 1.4 L Total Bilirubin 0.5 AST 25 ALT 17 Alkaline Phosphatase 56 Total Protein 7.1 Albumin 4.0 Globulin 3.1 Albumin/Globulin Ratio 1.3 Urine Color Urine Clarity Urine pH Ur Specific [place] Urine Protein Urine Glucose (UA) Urine Ketones Urine Occult Blood Urine Nitrite Urine Bilirubin Urine Urobilinogen Ur Leukocyte Esterase Urine RBC Urine WBC Urine WBC Clumps Ur Squamous Epith Cells Urine Bacteria Ur Microscopic Review Urine Culture Comments Urine Opiates Screen Ur Buprenorphine Scrn Ur Oxycodone Screen Urine Methadone Screen Ur Barbiturates Screen Ur Tricyclics Screen Ur Phencyclidine Scrn Ur Amphetamine Screen U Methamphetamines Scrn U Benzodiazepines Scrn Urine Cocaine Screen U Cannabinoids Screen Ur Drug Screen Comment Ethyl Alcohol < 10.0 01/03/24 01/03/24 21:42 22:01 WBC RBC Hgb Hct MCV MCH MCHC RDW Plt Count MPV Neut # (Auto) Lymph # (Auto) Mellette # (Auto) Eos # (Auto) Baso # (Auto) Absolute Nucleated RBC Nucleated RBC % PT INR Sodium Potassium Chloride Carbon Dioxide Anion Gap BUN Creatinine Estimated GFR (MDRD) Glucose Lactic Acid 0.7 Calcium Magnesium Total Bilirubin AST ALT Alkaline Phosphatase Total Protein Albumin Globulin Albumin/Globulin Ratio Urine Color YELLOW Urine Clarity HAZY Urine pH 6.5 Ur Specific [place] 1.010 Urine Protein NEGATIVE Urine Glucose (UA) 250 H Urine Ketones NEGATIVE Urine Occult Blood NEGATIVE Urine Nitrite NEGATIVE Urine Bilirubin NEGATIVE Urine Urobilinogen 0.2 (NORMAL) Ur Leukocyte Esterase SMALL H Urine RBC 0-5 Urine WBC >25 H Urine WBC Clumps PRESENT Ur Squamous Epith Cells RARE Squamous Urine Bacteria Many H Ur Microscopic Review INDICATED Urine Culture Comments INDICATED Urine Opiates Screen NEGATIVE Ur Buprenorphine Scrn NEGATIVE Ur Oxycodone Screen NEGATIVE Urine Methadone Screen NEGATIVE Ur Barbiturates Screen NEGATIVE Ur Tricyclics Screen NEGATIVE Ur Phencyclidine Scrn NEGATIVE Ur Amphetamine Screen NEGATIVE U Methamphetamines Scrn NEGATIVE U Benzodiazepines Scrn NEGATIVE Urine Cocaine Screen NEGATIVE U Cannabinoids Screen NEGATIVE Ur Drug Screen Comment CUTOFF CONC BELOW: Ethyl Alcohol - Rads (name of study) HEAD CT _NAD Relevant Findings:: Final report received, EMP independent interpretation of test CT CSpine-NAD except thyroid. Relevant Findings:: Final report received, EMP independent interpretation of test PD Medical Decision Making - ED course ED course: 73-year-old with dementia presents with much worse altered mental status than her usual. She has a known UTI which is not yet treated. Culture is available from the sixth of this month showing E. coli resistant only to ampicillin, gentamicin, and Bactrim. She was administered IV ceftriaxone. She does not appear to be septic, but is encephalopathic and as such requires admission to the hospital. Otherwise CBC showing mild depression of white and red cells. Normal INR, she is fairly hyponatremic on CMP and this may also be a cause of her encephalopathy. She continues to have pyuria. She was administered also a 50 mL bolus dose of hypertonic saline. Decision to admit was made at 10:45 PM, however there are no beds available in the hospital so she is boarding in the emergency department pending bed availability or improvement. I wrote for the important parts of her routine meds, daily ceftriaxone, morning labs, and prophylactic Lovenox. Care to overnight emergency physician at 11 PM. Departure - Departure Disposition: 66 [facility] DC/Xfer Clinical Impression: Hyponatremia, Thyroid nodule Urinary tract infection Qualifiers: Urinary tract infection type: site unspecified Hematuria presence: without hematuria Qualified Code(s): N39.0 - Urinary tract infection, site not specified Altered mental status Qualifiers: Altered mental status type: delirium Qualified Code(s): R41.0 - Disorientation, unspecified Condition: Stable Comments: She does have a small thyroid nodule which needs a nonemergent follow-up ultrasound. Forms: PCP List
[2024-01-03] MEDS ORDERED: iohexoL-300 100 ML VIAL ONE (21:40)
[2024-01-03 21:47] LABS: BASOPHILS % (AUTO) 0.8 %; EOSINOPHILS # (AUTO) 0.1 10^3/uL (0.0-0.7); EOSINOPHILS % (AUTO) 1.5 %; HCT - HEMATOCRIT 33.9 % (37.0-47.0); HGB - HEMOGLOBIN 11.9 g/dL (12.0-16.0); LYMPHOCYTES # (AUTO) 1.6 10^3/uL (1.5-3.5); LYMPHOCYTES % (AUTO) 34.6 %; MEAN CORPUSCULAR HGB CONC 35.1 g/dL (32.0-36.0); MEAN CORPUSCULAR VOLUME 88.3 fL (81.0-99.0); MEAN PLATELET VOLUME 9.6 fL (7.9-10.8); MONOCYTES # (AUTO) 0.4 10^3/uL (0.0-1.0); MONOCYTES % (AUTO) 8.5 %; NEUTROPHILS # (AUTO) 2.6 10^3/uL (1.5-6.6); NEUTROPHILS % (AUTO) 54.6 %; PLT - PLATELET COUNT 173 10^3/uL (130-450); RED BLOOD COUNT 3.84 10^6/uL (4.20-5.40); RED CELL DISTRIBUTION WIDTH 12.3 % (12.0-15.0); WHITE BLOOD COUNT 4.7 x10^3/uL (4.8-10.8)
[2024-01-03 21:52] LABS: PT - PROTHROMBIN TIME 10.7 secs (9.9-12.6)
[2024-01-03 22:06] LABS: ALBUMIN/GLOBULIN RATIO 1.3 (1.0-2.2); ALKALINE PHOSPHATASE 56 IU/L (42-121); ALT ALANINE AMINOTRANSFERASE 17 IU/L (10-60); AST ASPARTATE AMINOTRANSFERASE 25 IU/L (10-42); BILIRUBIN,TOTAL 0.5 mg/dL (0.2-1.0); BUN - BLOOD UREA NITROGEN 23 mg/dL (6-20); CALCIUM 9.5 mg/dL (8.5-10.3); CARBON DIOXIDE - CO2 25 mmol/L (21-32); CHLORIDE 88 mmol/L (101-111); CREATININE 0.9 mg/dL (0.6-1.3); ETOH - ETHANOL < 10.0 mg/dL; GFR - MDRD 61 (>89); GLUCOSE 236 mg/dL (74-104); MAGNESIUM 1.4 mg/dL (1.7-2.3); POTASSIUM 4.1 mmol/L (3.5-4.5); SODIUM 121 mmol/L (135-145); TOTAL PROTEIN 7.1 g/dL (6.4-8.9)
[2024-01-03 22:08] LABS: BILIRUBIN,URINE NEGATIVE (NEGATIVE); GLUCOSE, URINE (UA) 250 mg/dL (NEGATIVE); KETONES,URINE (UA) NEGATIVE (NEGATIVE); LEUKOCYTE ESTERASE, URINE SMALL (NEGATIVE); NITRITE,URINE NEGATIVE (NEGATIVE); OCCULT BLOOD,URINE NEGATIVE (NEGATIVE); PH,URINE 6.5 PH (5.0-7.5); PROTEIN,URINE NEGATIVE (NEGATIVE); UROBILINOGEN,URINE 0.2 (NORMAL) E.U./dL (NORMAL)
[2024-01-03 22:10] LABS: CLARITY,URINE HAZY (CLEAR)
[2024-01-03 22:18] LABS: BACTERIA,URINE Many /HPF (None Seen); RBC,URINE 0-5 /HPF (0-5); SQUAMOUS EPITHELIAL CELL,UR RARE Squamous (<= Few); WBC CLUMPS,URINE PRESENT; WBC,URINE >25 /HPF (0-5)
[2024-01-03 22:19] LABS: AMPHETAMINE SCREEN,URINE NEGATIVE (NEGATIVE); BARBITURATE SCREEN,UR NEGATIVE (NEGATIVE); BENZODIAZEPINES SCREEN, URINE NEGATIVE (NEGATIVE); BUPRENORPHINE SCREEN, URINE NEGATIVE (NEGATIVE); COCAINE SCREEN URINE NEGATIVE (NEGATIVE); METHADONE SCREEN, URINE NEGATIVE (NEGATIVE); METHAMPHETAMINES SCREEN, URINE NEGATIVE (NEGATIVE); OPIATE SCREEN, URINE NEGATIVE (NEGATIVE); OXYCODONE SCREEN, URINE NEGATIVE (NEGATIVE); THC CANNABINOID SCREEN, URINE NEGATIVE (NEGATIVE); TRICYCLIC ANTIDEPRESSANT,URINE NEGATIVE (NEGATIVE)
[2024-01-03] MEDS: iohexoL-300 100 ML VIAL IVP ONE (22:31)
[2024-01-03] MEDS: cefTRIAXone 1 GM VIAL IVP STA (22:52)
--- NOTE | 2024-01-03 22:54 | CT Report ---
PROCEDURE: Head WO INDICATIONS: ams TECHNIQUE: Noncontrast 4.5 mm thick angled axial sections acquired from the foramen magnum to the vertex. For r adiation dose reduction, the following was used: automated exposure control, adjustment of mA and/or kV according to patient size. COMPARISON: 08/16/2023 FINDINGS: Image quality: Diagnostic CSF spaces: Basal cisterns are patent. Lateral ventricles are symmetric. Volume: Vascular calcifications. Periventricular white matter disease is commonly seen with chronic m icroangiopathy. Volume loss is present. These findings are moderate. Brain: No intracranial hemorrhage. Rubio-white differentiation is grossly maintained. Craniofacial structures: Left phthisis bulbi. No significant paranasal sinus opacity where visualized IMPRESSION: No acute intracranial abnormality. If there is high concern for parenchymal pathology, consider furth er evaluation with MRI. Reviewed by: Baron Meza MD on 01/03/2024 10:53 PM PDT Approved by: Baron Meza MD on 01/03/2024 10:53 PM PDT Station ID: [id number]
[2024-01-03] MEDS ORDERED: ACETAMINOPHEN 500 MG TABLET PO PRN (22:57)
[2024-01-03] MEDS ORDERED: ONDANSETRON 4 MG/2 ML VIAL IVP PRN (22:57)
--- NOTE | 2024-01-03 23:00 | CT Report ---
PROCEDURE: Angio Head/Neck INDICATIONS: ams TECHNIQUE: After the administration of intravenous contrast, 1 mm thick sections acquired from the aortic arch t hrough the [place]. 3-dimensional joybwii-hswdiljdl-ovyfuqokar (MIP) and/or volume renderin g reformats were acquired of the central intracranial vasculature and neck separately. For radiation dose reduction, the following was used: automated exposure control, adjustment of mA and/or kV acco rding to patient size. CONTRAST: Omni 300, 80mls COMPARISON: None. FINDINGS: Image quality: Diagnostic Head angiography Anterior circulation: ICAs: Mild to moderate cavernous carotid calcifications. Mild to moderate focal narrowing is seen at the right supraclinoid ICA ACAs: normal and symmetric MCAs: normal and symmetric AComm: no aneurysm Venous sinuses: Not well assessed on this study Posterior circulation: Dominance: Left Vertebral arteries: Mild to moderate intracranial atherosclerotic calcifications Basilar artery: unremarkable PComms: Dominant on the left satellite dish repairer: normal and symmetric Neck angiography Aortic arch and subclavian arteries: normal flow CCAs: no stenosis, occlusion, or aneurysm. ICA origins (by NASCET criteria): Mild atherosclerotic calcifications, less than 50% narrowing ICAs: no stenosis, occlusion or aneurysm. ECAs: origins are patent. Vertebral arteries: unremarkable Soft tissues: 1.5 cm right thyroid nodule can be followed with nonemergent ultrasound. Left phthisis bulbi. Lung apices: No pneumothorax. Emphysema. Bones: Degenerative changes. IMPRESSION: No high-grade stenosis or large vessel occlusion. Mild and moderate areas of atherosclero tic narrowing as above. If there is high concern for parenchymal pathology, consider further evaluati on with MRI. 1.5 cm right thyroid nodule can be followed with nonemergent ultrasound. The estimate of stenosis included in the report of the imaging study was calculated using the NASCET method Reviewed by: Baron Meza MD on 01/03/2024 10:58 PM PDT Approved by: Baron Meza MD on 01/03/2024 10:58 PM PDT Station ID: [id number]
--- NOTE | 2024-01-03 23:46 | ED Physician Documentation ---
ED Addendum - Addendum Addendum: 01/03/24 23:44 Bed became available shortly after Dr. Sow signed out to me at 11 PM shift change. Patient will be admitted to the [facility] floor. Disposition Admit [facility] Impression 1 hyponatremia 2 thyroid nodule 3 altered mental status Condition stable
[2024-01-04] MEDS: SODIUM CHLORIDE 3% HYPERTONIC 50 ML IV SCH (00:11)
[2024-01-04] MEDS ORDERED: ACETAMINOPHEN 325 MG TABLET PO PRN (00:40)
[2024-01-04] MEDS: metFORMIN 500 MG TABLET PO SCH ×2 (00:47→19:24)
--- NOTE | 2024-01-04 00:48 | HISTORY & PHYSICAL EXAMINATION ---
Chief Complaint - Chief Complaint Chief Complaint: altered mentation & foul smelling urine History of Present Illness - Admitted From Admitted From:: ED - History Obtained From Records Reviewed: EMR History obtained from: ED and Niece Exam Limitations: Telemdicine. Patient has dementia - History of Present Illness HPI Comment/Other: 73F c hypertension and DM2 and dementia who was brought into the ED by niece for worsening mentation and foul smelling urine. Patient is mostly in bed. She has dementia and minimally interactive. Since a week ago, patient has had malodorous urine. Niece took patient to PCP and was told to collect urine for urine studies. This past Sunday, niece was finally able to collect sample and sent to lab. Tonight, patient was less response to niece. Usually patient would turn her head and acknowledge niece but tonight patient did not. Niece reports patient would get this way with a UTI or low salt level. Patient had low salt level in the past and was suppose to take extra salt via diet. She is on lisinopril for blood pressure. No new meds. No change in meds. No vomiting or diarrhea. Niece said patient taking po. Here in the ED, CT brain and CTA head negative. Na 121. UA mild leukocyte est positive and nitrite negative. History - Past Medical History Cardiovascular: reports: Hypertension, High cholesterol Neuro: reports: Dementia Endocrine/Autoimmune: reports: Type 2 diabetes - POLST Patient has POLST: No Meds/Allgy - Home Medications Home Medications: Ambulatory Orders Medication Instructions Recorded Confirmed Aspirin EC [Ecotrin] 81 mg PO DAILY 01/03/24 01/03/24 Cholecalciferol (Vitamin D3) 1,250 mcg PO ONCE 01/03/24 01/03/24 [Vitamin D3] Cranberry Fruit Extract [Cranberry] 500 mg PO DAILY 01/03/24 01/03/24 Insulin Glargine [Lantus Solostar] 10 unit SUBQ HS 01/03/24 01/03/24 Lisinopril [Zestril] 10 mg PO DAILY 01/03/24 01/03/24 Multivitamin 1 each PO DAILY 01/03/24 01/03/24 Simvastatin [Zocor] 20 mg PO DAILY 01/03/24 01/03/24 metFORMIN [Glucophage] 500 mg PO BIDWM 01/03/24 01/03/24 - Allergies Allergies/Adverse Reactions: Allergies Allergy/AdvReac Type Severity Reaction Status Date / Time No Known Drug Allergies Allergy Verified 01/03/24 21:26 Review of Systems - Other Findings Other Findings: limited 2/2 dementia and altered mentation. Exam - Vital Signs Reviewed Vital Signs: Yes Vital Signs: Vital Signs x48h Temp Pulse Resp BP Pulse Ox 01/03/24 23:31 83 20 171/97 H 100 01/03/24 21:27 36.6 C 72 16 146/82 H 99 - Physical Exam General Appearance: positive: Alert Eyes Bilateral: positive: Normal inspection ENT: positive: ENT inspection nml Neck: positive: Nml inspection Extremities: positive: Nml appearance Neurologic/Psychiatric: negative: Oriented x3 Conclusion/Plan - Problem List (1) Hyponatremia Conclusion/Plan: likely poor po intake. possible contribution from lisinopril. receive 1 L NS bolus in ED. will stat check Na level. switch out lisinopril for amlodipine. q6hr Na check. monitor on tele. followup urine osm/na/continuous improvement lead and serum osm stds for insight into hypoNa. (2) Urinary tract infection Conclusion/Plan: mild abn UA. given foul odor, will treat. followup ucx to guide abx coverage. Qualifiers: Urinary tract infection type: site unspecified Hematuria presence: without hematuria Qualified Code(s): N39.0 - Urinary tract infection, site not specified (3) Hypertension Conclusion/Plan: changed lisinopril for amlodipine given recurrent hypoNa. monitor blood pressure with repeat vitals. (4) DM2 (diabetes mellitus, type 2) Conclusion/Plan: hold metformin. cover with ssi. monitor with accucheck (5) HLD (hyperlipidemia) Conclusion/Plan: managed. continue statin therapy (6) Dementia Conclusion/Plan: avoid meds that worsen dementia and trigger delirium. fall and aspiration precaution. good sleep hygiene recommended. - Lab Results Lab results reviewed: Yes Fish Bones: 01/03/24 21:42 01/03/24 21:42 Core Measures - Anticipated LOS I expect patient to be DC'd or transferred within 96 hours.: No - Issues Hospital Issues and Management Plan: The patient consented to receive this telemedicine service, which I performed via live two-way audiovisual equipment. The patient is at ([facility]) and I am physically in [facility]. A nurse assisted me in the visit. - DVT/VTE - Prophylaxis VTE/DVT Device ordered at admit?: Yes Telemedicine Consult Details - Provider Location & Consult Time Telemedicine consultation conducted via videoconferencing?: Yes List names and roles of persons who participated in consult:: ED and Niece Telemedicine provider location:: [facility] Time Telemedicine consult began:: 00:21 Time Telemedicine consult completed:: 00:21
[2024-01-04 00:50] LABS: POTASSIUM 3.9 mmol/L (3.5-4.5)
[2024-01-04] MEDS ORDERED: SODIUM CHLORIDE 3% HYPERTONIC 50 ML IV SCH (01:00)
[2024-01-04] MEDS: SODIUM CHLORIDE 0.9% 1,000 ML IV STA (01:03)
[2024-01-04] MEDS: cefTRIAXone 1 GM in SODIUM CHLORIDE 0.9% MINIBAG 100 ML IV STA (02:46)
[2024-01-04] MEDS: SODIUM CHLORIDE FLUSH 0.9% 10 ML SYRINGE IVP SCH (02:50)
[2024-01-04] MEDS: MAGNESIUM SULFATE 2 GRAM 2 GM/50 ML BAG IV ONE (03:24)
[2024-01-04] MEDS: CHOLECALCIFEROL 1250 MCG PO SCH (05:28)
[2024-01-04] MEDS ORDERED: PANTOPRAZOLE 40 MG TABLET PO SCH (07:00)
[2024-01-04 07:33] LABS: BASOPHILS % (AUTO) 0.5 %; EOSINOPHILS % (AUTO) 0.7 %; LYMPHOCYTES # (AUTO) 0.9 10^3/uL (1.5-3.5); LYMPHOCYTES % (AUTO) 14.7 %; MEAN CORPUSCULAR HEMOGLOBIN 30.3 pg (27.0-31.0); MEAN CORPUSCULAR HGB CONC 34.2 g/dL (32.0-36.0); MEAN CORPUSCULAR VOLUME 88.6 fL (81.0-99.0); MEAN PLATELET VOLUME 9.6 fL (7.9-10.8); MONOCYTES # (AUTO) 0.6 10^3/uL (0.0-1.0); MONOCYTES % (AUTO) 10.4 %; NEUTROPHILS # (AUTO) 4.3 10^3/uL (1.5-6.6); NEUTROPHILS % (AUTO) 73.4 %; PLT - PLATELET COUNT 199 10^3/uL (130-450); RED BLOOD COUNT 4.29 10^6/uL (4.20-5.40); RED CELL DISTRIBUTION WIDTH 12.4 % (12.0-15.0); WHITE BLOOD COUNT 5.8 x10^3/uL (4.8-10.8)
[2024-01-04 07:48] LABS: CALCIUM 9.5 mg/dL (8.5-10.3); POTASSIUM 3.9 mmol/L (3.5-4.5)
[2024-01-04] MEDS ORDERED: ENOXAPARIN 40 MG/0.4 ML SYRINGE SUBQ SCH (09:00)
[2024-01-04] MEDS ORDERED: NON FORMULARY MED (Cranberry Fruit Extract [Cranberry] 500 MG Tablet) PO SCH (09:00)
[2024-01-04] MEDS ORDERED: lisinopriL 5 MG TABLET PO SCH (09:00)
[2024-01-04] MEDS: INSULIN LISPRO 300 UNIT/3 ML PEN SUBQ SCH ×3 (09:17→21:35)
[2024-01-04] MEDS: HEPARIN 5,000 UNIT/ML VIAL SUBQ SCH (09:18)
--- NOTE | 2024-01-04 09:21 | PHARMACY PROGRESS NOTE ---
- Best Possible Medication History Admit Date and Time: 01/04/24 0040 Processed by: Nursing As the person ultimately responsible for medication therapy, providers are able to order a medication from an existing home medication list in [facility] via the "Reconcile Routine" prior to Confirmation of that medication by operations support representative. Such practice is discouraged except when the physician, in their clinical judgment, deems that a medical need exists for a medication without regard to previous use.
[2024-01-04] MEDS: amLODIPine 5 MG TABLET PO SCH (09:25)
[2024-01-04] MEDS: MULTIVITAMIN TABLET PO SCH (09:25)
[2024-01-04] MEDS: ATORVASTATIN 10 MG TABLET PO SCH (09:26)
[2024-01-04] MEDS: ASPIRIN EC 81 MG TABLET PO SCH (09:26)
[2024-01-04 11:11] LABS: POTASSIUM 4.2 mmol/L (3.5-4.5)
[2024-01-04] MEDS: lisinopriL 5 MG TABLET PO SCH (12:20)
[2024-01-04 18:32] LABS: CALCIUM 9.7 mg/dL (8.5-10.3); POTASSIUM 3.9 mmol/L (3.5-4.5)
[2024-01-04] MEDS ORDERED: INSULIN GLARGINE-YFGN 300 UNIT/3 ML PEN SUBQ SCH (21:00)
[2024-01-04] MEDS ORDERED: cefTRIAXone 1 GM in SODIUM CHLORIDE 0.9% MINIBAG 100 ML IV SCH (21:00)
[2024-01-04] MEDS: cefTRIAXone 2 GM in SODIUM CHLORIDE 0.9% MINIBAG 100 ML IV SCH (21:29)
[2024-01-04] MEDS: INSULIN GLARGINE-YFGN 300 UNIT/3 ML PEN SUBQ SCH (21:36)
[2024-01-05 06:14] LABS: CALCIUM 10.2 mg/dL (8.5-10.3); POTASSIUM 4.1 mmol/L (3.5-4.5)
--- NOTE | 2024-01-05 23:03 | PROVIDER PROGRESS NOTE ---
Assessment/Plan - Problem List (1) Hyponatremia Assessment/Plan: Serum sodium has increased appropriately over the last 24 hours. Continue to monitor serum sodium and consider initiating salt tablets if her serum sodium decreases. (2) Urinary tract infection Conclusion/Plan: Continue ceftriaxone empirically for urinary tract infection. Await culture results. Qualifiers: Urinary tract infection type: site unspecified Hematuria presence: without hematuria Qualified Code(s): N39.0 - Urinary tract infection, site not specified (3) Hypertension Conclusion/Plan: Continue amlodipine 5 mg daily for blood pressure control. (4) DM2 (diabetes mellitus, type 2) Conclusion/Plan: Continue sliding scale insulin. (5) HLD (hyperlipidemia) Conclusion/Plan: Continue atorvastatin 10 mg daily. (6) Dementia Conclusion/Plan: Stable continue to monitor mental status. Avoid medications that can trigger delirium. - Current Meds Current Meds: Current Medications Generic Name Dose Route Start Last Admin Trade Name Freq PRN Reason Stop Dose Admin Amlodipine Besylate 5 mg 01/04/24 09:00 01/05/24 08:39 Amlodipine 5 Mg Tablet PO 5 mg DAILY KIMI Administration Aspirin 81 mg 01/04/24 09:00 01/05/24 08:39 Aspirin Ec 81 Mg Tablet PO 81 mg DAILY KIMI Administration Atorvastatin Calcium 10 mg 01/04/24 09:00 01/05/24 08:39 Atorvastatin 10 Mg Tablet PO 10 mg DAILY KIMI Administration Heparin Sodium (Porcine) 5,000 unit 01/04/24 09:00 01/05/24 22:53 Heparin 5,000 Unit/Ml Vial SUBQ Not Given BID KIMI Ceftriaxone Sodium 2 gm/ 100 mls @ 200 mls/hr 01/04/24 21:00 01/05/24 21:34 Sodium Chloride IV 01/06/24 21:29 Infused HS KIMI Infusion Insulin Glargine-yfgn 10 unit 01/04/24 21:00 01/05/24 20:52 Insulin Glargine-Yfgn 300 Unit/3 Ml Pen SUBQ 10 unit HS KIMI Administration Insulin Human Lispro 0 unit 01/04/24 07:00 01/05/24 17:13 Insulin Lispro 300 Unit/3 Ml Pen SUBQ Not Given [facility] Protocol Insulin Human Lispro 1 - 9 unit 01/04/24 21:00 01/05/24 20:51 Insulin Lispro 300 Unit/3 Ml Pen SUBQ 9 unit 0800,1200,1700,2100 KIMI Administration Protocol Lisinopril 10 mg 01/04/24 11:40 01/05/24 08:40 Lisinopril 5 Mg Tablet PO 10 mg DAILY KIMI Administration Metformin HCl 500 mg 01/04/24 17:00 01/05/24 17:33 Metformin 500 Mg Tablet PO 500 mg BIDWM KIMI Administration Multivitamins 1 tab 01/04/24 09:00 01/05/24 08:38 Multivitamin Tablet PO 1 tab DAILY KIMI Administration Sodium Chloride 10 ml 01/04/24 01:00 01/05/24 17:14 Sodium Chloride Flush 0.9% 10 Ml Syringe IVP 10 ml 0100,0900,1700 KIMI Administration - Lab Result Fish Bone Diagrams: 01/05/24 23:55 01/06/24 04:54 - Additional Planning My Orders: My Active Orders 01/05/24 Evaluate and Treat OT [OT] Routine Evaluate and Treat PT [PT] Routine 01/05/24 Breakfast Carb-controlled Diet [DIET] 01/05/24 19:11 [place] Insertion [RC] QSHIFT Subjective - Subjective Patient Reports: Other (Responsive. But does not say much.) Objective Vital Signs: Vital Signs - 24 hr 01/05/24 01/05/24 01/05/24 00:00 07:47 15:40 Temperature 36.6 C 36.4 C L 36.4 C L Heart Rate [ 88 84 85 Monitoring electrodes] Respiratory 16 16 17 Rate Blood Pressure 109/55 L [Left Brachial artery] Blood Pressure 96/83 H 117/93 H [Right Brachial artery] O2 Saturation 98 93 96 01/05/24 16:14 Temperature 36.3 C L Heart Rate [ 76 Monitoring electrodes] Respiratory 17 Rate Blood Pressure [Left Brachial artery] Blood Pressure 129/66 [Right Brachial artery] O2 Saturation 98 Oxygen O2 Source Room air I&O (Last 24 Hrs): Intake and Output Totals x24h 01/03/24 01/04/24 01/05/24 23:59 23:59 23:59 Intake Total 1807 430 Output Total 1600 2700 Balance 207 -2270 General: No acute distress HEENT: Atraumatic Neck: No JVD Neuro: Alert, Non Focal Cardiovascular: Other (Positive S1-S2 no extra heart sounds.) Respiratory: Other (Good air exchange in all lung nunez no wheezing no aircraft servicer ckles.) Abdomen: Other (Soft nondistended positive bowel sound) Extremities: No cyanosis, No edema Skin: No rashes - Results Results: Laboratory Results WBC 5.8 x10^3/uL (4.8-10.8) 01/04/24 07: RBC 4.29 10^6/uL (4.20-5.40) 01/04/24 07: Hgb 13.0 g/dL (12.0-16.0) 01/04/24 07: Hct 38.0 % (37.0-47.0) 01/04/24: MCV 88.6 fL (81.0-99.0) 01/04/24: MCH 30.3 pg (27.0-31.0) 01/04/24: MCHC 34.2 g/dL (32.0-36.0) 01/04/24: RDW 12.4 % (12.0-15.0) 01/04/24: Plt Count 199 10^3/uL (130-450) 01/04/24 07:24 MPV 9.6 fL (7.9-10.8) 01/04/24 07:24 Neut # (Auto) 4.3 10^3/uL (1.5-6.6) 01/04/24 07:24 Lymph # (Auto) 0.9 10^3/uL (1.5-3.5) L 01/04/24 07: [place] # (Auto) 0.6 10^3/uL (0.0-1.0) 01/04/24 07:24 Eos # (Auto) 0.0 10^3/uL (0.0-0.7) 01/04/24 07:24 Baso # (Auto) 0.0 10^3/uL (0.0-0.1) 01/04/24: Absolute Nucleated RBC 0.00 x10^3/uL 01/04/24: Nucleated RBC % 0.0 /100WBC 01/04/24 07: PT 10.7 secs (9.9-12.6) 01/03/24 21:42 INR 1.0 (0.8-1.2) 01/03/24 21:42 Sodium 129 mmol/L (135-145) L 01/05/24 04:37 Potassium 4.1 mmol/L (3.5-4.5) 01/05/24 04:37 Chloride 93 mmol/L (101-111) L 01/05/24 04:37 Carbon Dioxide 26 mmol/L (21-32) 01/05/24 04:37 Anion Gap 10.0 (6-13) 01/05/24 04:37 BUN 33 mg/dL (6-20) H 01/05/24 04:37 Creatinine 1.0 mg/dL (0.6-1.3) 01/05/24 04:37 Estimated GFR (MDRD) 54 (>89) L 01/05/24 04:37 Glucose 64 mg/dL (74-104) L 01/05/24 04:37 POC Whole Bld Glucose 326 mg/dL (70 - 100) H 01/05/24 20:46 Lactic Acid 0.7 mmol/L (0.5-2.2) 01/03/24 21:42 Calcium 10.2 mg/dL (8.5-10.3) 01/05/24 04:37 Magnesium 2.0 mg/dL (1.7-2.3) 01/05/24 04:37 Total Bilirubin 0.5 mg/dL (0.2-1.0) 01/03/24 21:42 AST 25 IU/L (10-42) 01/03/24 21:42 ALT 17 IU/L (10-60) 01/03/24 21:42 Alkaline Phosphatase 56 IU/L (42-121) 01/03/24 21:42 Total Protein 7.1 g/dL (6.4-8.9) 01/03/24 21:42 Albumin 4.0 g/dL (3.2-5.5) 01/03/24 21:42 Globulin 3.1 g/dL (2.1-4.2) 01/03/24 21:42 Albumin/Globulin Ratio 1.3 (1.0-2.2) 01/03/24 21:42 Urine Color YELLOW 01/03/24 22:01 Urine Clarity HAZY (CLEAR) 01/03/24 22:01 Urine pH 6.5 PH (5.0-7.5) 01/03/24 22:01 Ur Specific [place] 1.010 (1.002-1.030) 01/03/24 22:01 Urine Protein NEGATIVE mg/dL (NEGATIVE) 01/03/24 22:01 Urine Glucose (UA) 250 mg/dL (NEGATIVE) H 01/03/24 22:01 Urine Ketones NEGATIVE mg/dL (NEGATIVE) 01/03/24 22:01 Urine Occult Blood NEGATIVE (NEGATIVE) 01/03/24 22:01 Urine Nitrite NEGATIVE (NEGATIVE) 01/03/24 22:01 Urine Bilirubin NEGATIVE (NEGATIVE) 01/03/24 22:01 Urine Urobilinogen 0.2 (NORMAL) E.U./dL (NORMAL) 01/03/24 22:01 Ur Leukocyte Esterase SMALL (NEGATIVE) H 01/03/24 22:01 Urine RBC 0-5 /HPF (0-5) 01/03/24 22:01 Urine WBC >25 /HPF (0-5) H 01/03/24 22:01 Urine WBC Clumps PRESENT 01/03/24 22:01 Ur Squamous Epith Cells RARE Squamous (<= Few) 01/03/24 22:01 Urine Bacteria Many /HPF (None Seen) H 01/03/24 22:01 Ur Microscopic Review INDICATED 01/03/24 22:01 Urine Culture Comments INDICATED 01/03/24 22:01 Urine Creatinine 18.4 mg/dL 01/03/24 22:01 Ur Sodium 24 Hour Cancelled 01/03/24 22:01 Ur Sodium Timed Cancelled 01/03/24 22:01 Urine Opiates Screen NEGATIVE (NEGATIVE) 01/03/24 22:01 Ur Buprenorphine Scrn NEGATIVE (NEGATIVE) 01/03/24 22:01 Ur Oxycodone Screen NEGATIVE (NEGATIVE) 01/03/24 22:01 Urine Methadone Screen NEGATIVE (NEGATIVE) 01/03/24 22:01 Ur Barbiturates Screen NEGATIVE (NEGATIVE) 01/03/24 22:01 Ur Tricyclics Screen NEGATIVE (NEGATIVE) 01/03/24 22:01 Ur Phencyclidine Scrn NEGATIVE (NEGATIVE) 01/03/24 22:01 Ur Amphetamine Screen NEGATIVE (NEGATIVE) 01/03/24 22:01 U Methamphetamines Scrn NEGATIVE (NEGATIVE) 01/03/24 22:01 U Benzodiazepines Scrn NEGATIVE (NEGATIVE) 01/03/24 22:01 Urine Cocaine Screen NEGATIVE (NEGATIVE) 01/03/24 22:01 U Cannabinoids Screen NEGATIVE (NEGATIVE) 01/03/24 22:01 Ur Drug Screen Comment CUTOFF CONC BELOW: 01/03/24 22:01 Ethyl Alcohol < 10.0 mg/dL 01/03/24 21:42
[2024-01-06 00:02] LABS: BASOPHILS % (AUTO) 0.7 %; EOSINOPHILS # (AUTO) 0.1 10^3/uL (0.0-0.7); EOSINOPHILS % (AUTO) 1.1 %; HCT - HEMATOCRIT 33.8 % (37.0-47.0); HGB - HEMOGLOBIN 11.4 g/dL (12.0-16.0); LYMPHOCYTES # (AUTO) 0.7 10^3/uL (1.5-3.5); LYMPHOCYTES % (AUTO) 15.4 %; MEAN CORPUSCULAR HEMOGLOBIN 30.6 pg (27.0-31.0); MEAN CORPUSCULAR HGB CONC 33.7 g/dL (32.0-36.0); MEAN CORPUSCULAR VOLUME 90.6 fL (81.0-99.0); MEAN PLATELET VOLUME 9.8 fL (7.9-10.8); MONOCYTES # (AUTO) 0.4 10^3/uL (0.0-1.0); MONOCYTES % (AUTO) 8.7 %; NEUTROPHILS # (AUTO) 3.4 10^3/uL (1.5-6.6); NEUTROPHILS % (AUTO) 73.9 %; PLT - PLATELET COUNT 185 10^3/uL (130-450); RED BLOOD COUNT 3.73 10^6/uL (4.20-5.40); RED CELL DISTRIBUTION WIDTH 12.9 % (12.0-15.0); WHITE BLOOD COUNT 4.6 x10^3/uL (4.8-10.8)
[2024-01-06 00:14] LABS: ALBUMIN 3.9 g/dL (3.2-5.5); ALBUMIN/GLOBULIN RATIO 1.4 (1.0-2.2); BILIRUBIN,TOTAL 0.3 mg/dL (0.2-1.0); CALCIUM 9.4 mg/dL (8.5-10.3); MAGNESIUM 1.5 mg/dL (1.7-2.3); POTASSIUM 4.2 mmol/L (3.5-4.5); TOTAL PROTEIN 6.7 g/dL (6.4-8.9)
[2024-01-06 05:31] LABS: CALCIUM 9.6 mg/dL (8.5-10.3); MAGNESIUM 1.6 mg/dL (1.7-2.3); PHOSPHORUS 2.7 mg/dL (2.5-5.0); POTASSIUM 4.2 mmol/L (3.5-4.5)
[2024-01-06] MEDS: SODIUM CHLORIDE 1 GM TABLET PO ONE (14:33)
--- NOTE | 2024-01-06 16:08 | PROVIDER PROGRESS NOTE ---
Assessment/Plan - Problem List (1) Hyponatremia Assessment/Plan: Decreased mildly over the last 24 hours and is gone from 129 to127. Plan is to initiate treatment with salt tablets. 2 g 3 times a day. Continue to monitor serum sodium. Amy lives with her niece Lashell and in discussion with Lashell she reports that Amy drinks a significant amount of water at home. Recommend limiting total fluid intake to 1800 mL a day. (2) Urinary tract infection Conclusion/Plan: Continue ceftriaxone empirically for urinary tract infection. Urine culture reveals greater than 100,000 colony-forming units of E. coli. Sensitivities demonstrate that is sensitive to ceftriaxone and cefhalexin could be used to transition to by mouth medication. Qualifiers: Urinary tract infection type: site unspecified Hematuria presence: without hematuria Qualified Code(s): N39.0 - Urinary tract infection, site not specified (3) Hypertension Conclusion/Plan: Continue amlodipine 5 mg daily for blood pressure control. (4) DM2 (diabetes mellitus, type 2) Conclusion/Plan: Continue sliding scale insulin. (5) HLD (hyperlipidemia) Conclusion/Plan: Continue atorvastatin 10 mg daily. (6) Dementia Conclusion/Plan: Stable continue to monitor mental status. Avoid medications that can trigger delirium. - Current Meds Current Meds: Current Medications Generic Name Dose Route Start Last Admin Trade Name Freq PRN Reason Stop Dose Admin Amlodipine Besylate 5 mg 01/04/24 09:00 01/06/24 08:31 Amlodipine 5 Mg Tablet PO 5 mg DAILY KIMI Administration Aspirin 81 mg 01/04/24 09:00 01/06/24 08:31 Aspirin Ec 81 Mg Tablet PO 81 mg DAILY KIMI Administration Atorvastatin Calcium 10 mg 01/04/24 09:00 01/06/24 08:31 Atorvastatin 10 Mg Tablet PO 10 mg DAILY KIMI Administration Heparin Sodium (Porcine) 5,000 unit 01/04/24 09:00 01/06/24 08:33 Heparin 5,000 Unit/Ml Vial SUBQ 5,000 unit BID KIMI Administration Ceftriaxone Sodium 2 gm/ 100 mls @ 200 mls/hr 01/04/24 21:00 01/05/24 21:34 Sodium Chloride IV 01/06/24 21:29 Infused HS KIMI Infusion Insulin Glargine-yfgn 10 unit 01/04/24 21:00 01/05/24 20:52 Insulin Glargine-Yfgn 300 Unit/3 Ml Pen SUBQ 10 unit HS KIMI Administration Insulin Human Lispro 1 - 9 unit 01/04/24 21:00 01/06/24 11:47 Insulin Lispro 300 Unit/3 Ml Pen SUBQ 1 unit 0800,1200,1700,2100 KIMI Administration Protocol Lisinopril 10 mg 01/04/24 11:40 01/06/24 08:30 Lisinopril 5 Mg Tablet PO 10 mg DAILY KIMI Administration Metformin HCl 500 mg 01/04/24 17:00 01/06/24 08:30 Metformin 500 Mg Tablet PO 500 mg BIDWM KIMI Administration Multivitamins 1 tab 01/04/24 09:00 01/06/24 08:31 Multivitamin Tablet PO 1 tab DAILY KIMI Administration Sodium Chloride 10 ml 01/04/24 01:00 01/06/24 08:31 Sodium Chloride Flush 0.9% 10 Ml Syringe IVP 10 ml 0100,0900,1700 [facility] Administration - Lab Result Fish Bone Diagrams: 01/05/24 23:55 01/06/24 04:54 - Additional Planning My Orders: My Active Orders 01/05/24 19:11 [place] Insertion [RC] QSHIFT 01/06/24 22:00 Sodium Chloride [Salt Tab] 2 gm PO TID Subjective - Subjective Patient Reports: Other (Intermittently alert. Amy sleeps frequently. She has severe dementia. According to her niece she cannot dress herself or toilet herself. She does feed herself.Amy has no complaints today.) Objective Vital Signs: Vital Signs - 24 hr 01/05/24 01/05/24 01/06/24 16:14 23:46 07:46 Temperature 36.3 C L 36.5 C 36.5 C Heart Rate [ 86 70 Brachial] Heart Rate [ 76 Monitoring electrodes] Respiratory 17 18 16 Rate Blood Pressure 129/66 123/61 116/57 L [Right Brachial artery] O2 Saturation 98 98 97 01/06/24 15:51 Temperature 36.5 C Heart Rate [ 83 Brachial] Heart Rate [ Monitoring electrodes] Respiratory 18 Rate Blood Pressure 108/60 [Right Brachial artery] O2 Saturation 95 Oxygen O2 Source Room air I&O (Last 24 Hrs): Intake and Output Totals x24h 01/04/24 01/05/24 01/06/24 23:59 23:59 23:59 Intake Total 1807 430 610 Output Total 1600 2700 1620 Balance 207 -2270 -1010 General: Alert, Oriented x3, No acute distress Neck: No JVD Neuro: Alert, Non Focal Cardiovascular: Other (Positive S1-S2 no extra heart sounds) Respiratory: Other (Fair air exchange in all lung nunez no wheezing no crackles.) Abdomen: Other (Soft nontender nondistended positive bowel sound) Skin: No rashes - Results Results: Laboratory Results WBC 4.6 x10^3/uL (4.8-10.8) L 01/05/24 23:55 RBC 3.73 10^6/uL (4.20-5.40) L 01/05/24 23:55 Hgb 11.4 g/dL (12.0-16.0) L 01/05/24 23:55 Hct 33.8 % (37.0-47.0) L 01/05/24 23:55 MCV 90.6 fL (81.0-99.0) 01/05/24 23:55 MCH 30.6 pg (27.0-31.0) 01/05/24 23:55 MCHC 33.7 g/dL (32.0-36.0) 01/05/24 23:55 RDW 12.9 % (12.0-15.0) 01/05/24 23:55 Plt Count 185 10^3/uL (130-450) 01/05/24 23:55 MPV 9.8 fL (7.9-10.8) 01/05/24 23:55 Neut # (Auto) 3.4 10^3/uL (1.5-6.6) 01/05/24 23:55 Lymph # (Auto) 0.7 10^3/uL (1.5-3.5) L 01/05/24 23:55 [place] # (Auto) 0.4 10^3/uL (0.0-1.0) 01/05/24 23:55 Eos # (Auto) 0.1 10^3/uL (0.0-0.7) 01/05/24 23:55 Baso # (Auto) 0.0 10^3/uL (0.0-0.1) 01/05/24 23:55 Absolute Nucleated RBC 0.00 x10^3/uL 01/05/24 23:55 Nucleated RBC % 0.0 /100WBC 01/05/24 23:55 PT 10.7 secs (9.9-12.6) 01/03/24 21:42 INR 1.0 (0.8-1.2) 01/03/24 21:42 Sodium 127 mmol/L (135-145) L 01/06/24 04:54 Potassium 4.2 mmol/L (3.5-4.5) 01/06/24 04:54 Chloride 93 mmol/L (101-111) L 01/06/24 04:54 Carbon Dioxide 27 mmol/L (21-32) 01/06/24 04:54 Anion Gap 7.0 (6-13) 01/06/24 04:54 BUN 22 mg/dL (6-20) H 01/06/24 04:54 Creatinine 1.0 mg/dL (0.6-1.3) 01/06/24 04:54 Estimated GFR (MDRD) 54 (>89) L 01/06/24 04:54 Glucose 82 mg/dL (74-104) 01/06/24 04:54 POC Whole Bld Glucose 118 mg/dL (70 - 100) H 01/06/24 08:16 Lactic Acid 0.7 mmol/L (0.5-2.2) 01/03/24 21:42 Calcium 9.6 mg/dL (8.5-10.3) 01/06/24 04:54 Phosphorus 2.7 mg/dL (2.5-5.0) 01/06/24 04:54 Magnesium 1.6 mg/dL (1.7-2.3) L 01/06/24 04:54 Total Bilirubin 0.3 mg/dL (0.2-1.0) 01/05/24 23:55 AST 28 IU/L (10-42) 01/05/24 23:55 ALT 20 IU/L (10-60) 01/05/24 23:55 Alkaline Phosphatase 52 IU/L (42-121) 01/05/24 23:55 Total Protein 6.7 g/dL (6.4-8.9) 01/05/24 23:55 Albumin 3.9 g/dL (3.2-5.5) 01/05/24 23:55 Globulin 2.8 g/dL (2.1-4.2) 01/05/24 23:55 Albumin/Globulin Ratio 1.4 (1.0-2.2) 01/05/24 23:55 Urine Color YELLOW 01/03/24 22:01 Urine Clarity HAZY (CLEAR) 01/03/24 22:01 Urine pH 6.5 PH (5.0-7.5) 01/03/24 22:01 Ur Specific [place] 1.010 (1.002-1.030) 01/03/24 22:01 Urine Protein NEGATIVE mg/dL (NEGATIVE) 01/03/24 22:01 Urine Glucose (UA) 250 mg/dL (NEGATIVE) H 01/03/24 22:01 Urine Ketones NEGATIVE mg/dL (NEGATIVE) 01/03/24 22:01 Urine Occult Blood NEGATIVE (NEGATIVE) 01/03/24 22:01 Urine Nitrite NEGATIVE (NEGATIVE) 01/03/24 22:01 Urine Bilirubin NEGATIVE (NEGATIVE) 01/03/24 22:01 Urine Urobilinogen 0.2 (NORMAL) E.U./dL (NORMAL) 01/03/24 22:01 Ur Leukocyte Esterase SMALL (NEGATIVE) H 01/03/24 22:01 Urine RBC 0-5 /HPF (0-5) 01/03/24 22:01 Urine WBC >25 /HPF (0-5) H 01/03/24 22:01 Urine WBC Clumps PRESENT 01/03/24 22:01 Ur Squamous Epith Cells RARE Squamous (<= Few) 01/03/24 22:01 Urine Bacteria Many /HPF (None Seen) H 01/03/24 22:01 Ur Microscopic Review INDICATED 01/03/24 22:01 Urine Culture Comments INDICATED 01/03/24 22:01 Urine Creatinine 18.4 mg/dL 01/03/24 22:01 Ur Sodium 24 Hour Cancelled 01/03/24 22:01 Ur Sodium Timed Cancelled 01/03/24 22:01 Urine Opiates Screen NEGATIVE (NEGATIVE) 01/03/24 22:01 Ur Buprenorphine Scrn NEGATIVE (NEGATIVE) 01/03/24 22:01 Ur Oxycodone Screen NEGATIVE (NEGATIVE) 01/03/24 22:01 Urine Methadone Screen NEGATIVE (NEGATIVE) 01/03/24 22:01 Ur Barbiturates Screen NEGATIVE (NEGATIVE) 01/03/24 22:01 Ur Tricyclics Screen NEGATIVE (NEGATIVE) 01/03/24 22:01 Ur Phencyclidine Scrn NEGATIVE (NEGATIVE) 01/03/24 22:01 Ur Amphetamine Screen NEGATIVE (NEGATIVE) 01/03/24 22:01 U Methamphetamines Scrn NEGATIVE (NEGATIVE) 01/03/24 22:01 U Benzodiazepines Scrn NEGATIVE (NEGATIVE) 01/03/24 22:01 Urine Cocaine Screen NEGATIVE (NEGATIVE) 01/03/24 22:01 U Cannabinoids Screen NEGATIVE (NEGATIVE) 01/03/24 22:01 Ur Drug Screen Comment CUTOFF CONC BELOW: 01/03/24 22:01 Ethyl Alcohol < 10.0 mg/dL 01/03/24 21:42
[2024-01-06] MEDS: SODIUM CHLORIDE 1 GM TABLET PO SCH (22:13)
[2024-01-07 05:53] LABS: MAGNESIUM 1.4 mg/dL (1.7-2.3)
[2024-01-07 06:06] LABS: CALCIUM 9.8 mg/dL (8.5-10.3); CREATININE 1.1 mg/dL (0.6-1.3); POTASSIUM 3.8 mmol/L (3.5-4.5)
[2024-01-07] MEDS ORDERED: DEXTROSE 50% ABBOJECT 25 GM/50 ML SYRINGE ONE (06:12)
[2024-01-07] MEDS: DEXTROSE 50% ABBOJECT 25 GM/50 ML SYRINGE IVP ONE (06:15)
[2024-01-07] MEDS ORDERED: DEXTROSE 5% 500 ML IV ONE (06:16)
[2024-01-07] MEDS: DEXTROSE 5% 500 ML IV SCH ×2 (06:20→06:26)
[2024-01-07 10:09] LABS: ESTIMATED AVERAGE GLUCOSE 275 mg/dL (70-100); HEMOGLOBIN A1c% 11.2 % (4.27-6.07)
[2024-01-07] MEDS: POTASSIUM CHLORIDE 20 MEQ TABLET PO SCH (17:10)
--- NOTE | 2024-01-07 17:26 | PROVIDER PROGRESS NOTE ---
Assessment/Plan - Problem List (1) Hyponatremia Assessment/Plan: (1) Hyponatremia Assessment/Plan: Serum sodium has increased to 131. She continues on salt tablets 1 g 3 times a day. Salt tablets can be adjusted as needed to maintain her serum sodium greater than 130. Patient's home caregiver and niece, Lashell, reports she drinks a significant amount of water at home. It is recommended that patient limit her total fluid intake to 1800 mL each day and adjust as needed. (2) Urinary tract infection Conclusion/Plan: Continue ceftriaxone empirically for urinary tract infection. Urine culture reveals greater than 100,000 colony-forming units of E. coli. Sensitivities demonstrate that is sensitive to ceftriaxone and cephalexin could be used to transition to by mouth medication.Patient will have received 4 days of antibiotics [email or web address] recommend 5 to 7 days of antibiotics. Qualifiers: Urinary tract infection type: site unspecified Hematuria presence: without hematuria Qualified Code(s): N39.0 - Urinary tract infection, site not specified (3) Hypertension Conclusion/Plan: Continue amlodipine 5 mg daily for blood pressure control. (4) DM2 (diabetes mellitus, type 2) Conclusion/Plan: Patient was hypoglycemic this morning with a serum glucose of 47. Her nighttime dose of glargine has been changed to the morning and decreased from 10 units to 8 units daily.Continue sliding scale insulin.Patient's serum glucose is very labile. Her glargine has been decreased to 8 units in the morning. She continues on sliding scale. (5) HLD (hyperlipidemia) Conclusion/Plan: Continue atorvastatin 10 mg daily. (6) Dementia Conclusion/Plan: Stable continue to monitor mental status. Avoid medications that can trigger delirium. (7) Disposition Conclusion/Plan: Patient is not medically cleared due to her labile glucose. She can go from a serum glucose of less than 60 to over 300 and several hours. Recommend relaxing her serum glucose control with goal of maintaining her serum glucose 150-250 consistently. Goals of care were discussed with patient's care provider/erickson Lobo. Lashell stays at home full-time with Amy and her own mother. Today we discussed the fact that PT/OT has rest commended a jail facility. However, patient is demented and speaks only [place]. It is unlikely that she will follow commands enough to go to a jail facility. Lashell is going to discuss goals of care with Amy's son usha. She plans on coming into meet with a social insurance adviser between 9 and 10 AM on January 07. During our discussion we also talked about initiating comfort care measures. Lashell stated she would talk to Amy son about this. Consider consulting palliative car - Current Meds Current Meds: Current Medications Generic Name Dose Route Start Last Admin Trade Name Haile PRN Reason Stop Dose Admin Amlodipine Besylate 5 mg 01/04/24 09:00 01/07/24 09:47 Amlodipine 5 Mg Tablet PO 5 mg DAILY KIMI Administration Aspirin 81 mg 01/04/24 09:00 01/07/24 09:47 Aspirin Ec 81 Mg Tablet PO 81 mg DAILY KIMI Administration Atorvastatin Calcium 10 mg 01/04/24 09:00 01/07/24 09:47 Atorvastatin 10 Mg Tablet PO 10 mg DAILY KIMI Administration Heparin Sodium (Porcine) 5,000 unit 01/04/24 09:00 01/07/24 11:40 Heparin 5,000 Unit/Ml Vial SUBQ 5,000 unit BID KIIM Administration Insulin Human Lispro 1 - 9 unit 01/04/24 21:00 01/07/24 11:41 Insulin Lispro 300 Unit/3 Ml Pen SUBQ 3 unit 0800,1200,1700,2100 KIMI Administration Protocol Lisinopril 10 mg 01/04/24 11:40 01/07/24 09:47 Lisinopril 5 Mg Tablet PO 10 mg DAILY KIMI Administration Metformin HCl 500 mg 01/04/24 17:00 01/07/24 09:47 Metformin 500 Mg Tablet PO 500 mg BIDWM KIMI Administration Multivitamins 1 tab 01/04/24 09:00 01/07/24 09:47 Multivitamin Tablet PO 1 tab DAILY KIMI Administration Sodium Chloride 10 ml 01/04/24 01:00 01/07/24 09:48 Sodium Chloride Flush 0.9% 10 Ml Syringe IVP 10 ml 0100,0900,1700 KIMI Administration Sodium Chloride 2 gm 01/06/24 22:00 01/07/24 14:14 Sodium Chloride 1 Gm Tablet PO 2 gm TID KIMI Administration - Lab Result Fish Bone Diagrams: 01/05/24 23:55 01/07/24 04:41 - Additional Planning My Orders: My Active Orders 01/06/24 16:40 Daily Weight [RC] 0600 Miscellaenous Nursing Order [RC] QSHIFT 01/06/24 22:00 Sodium Chloride [Salt Tab] 2 gm PO TID 01/07/24 13:28 Free Water Restriction [RC] IOSHIFT 01/07/24 17:00 Potassium Chloride [K-Dur] 40 meq PO DAILYWM 01/07/24 21:00 Magnesium Oxide [Mag Ox] 400 mg PO BID 01/08/24 09:00 Insulin Glargine-Yfgn [Semglee] 8 unit SUBQ DAILY Subjective - Subjective Patient Reports: Other (Alert. Appears to be comfortable. Tolerating her diet. No other complaints at this time.) Objective Vital Signs: Vital Signs - 24 hr 01/07/24 01/07/24 01/07/24 00:25 06:30 08:00 Temperature 36.8 C 36.5 C 36.5 C Heart Rate [ 72 68 Brachial] Heart Rate [ 70 Monitoring electrodes] Respiratory 12 13 16 Rate Blood Pressure 121/54 L 132/62 H 127/65 [Right Brachial artery] O2 Saturation 98 98 98 01/07/24 15:42 Temperature 36.6 C Heart Rate [ 100 Brachial] Heart Rate [ Monitoring electrodes] Respiratory 16 Rate Blood Pressure 139/72 H [Right Brachial artery] O2 Saturation 98 Oxygen O2 Source Room air I&O (Last 24 Hrs): Intake and Output Totals x24h 01/05/24 01/06/24 01/07/24 23:59 23:59 23:59 Intake Total 430 950 518.333 Output Total 2700 2320 950 Balance -2270 -1370 -431.667 General: Alert, No acute distress HEENT: Atraumatic Neck: No JVD Neuro: Alert, Non Focal Cardiovascular: Other (Positive S1-S2 no extra heart sounds.) Respiratory: Other (Fair air exchange in all lung nunez no wheezing no crackles.) Abdomen: Other (Soft nontender nondistended positive bowel sounds) Extremities: No cyanosis, No edema Skin: No rashes - Results Results: Laboratory Results WBC 4.6 x10^3/uL (4.8-10.8) L 01/05/24 23:55 RBC 3.73 10^6/uL (4.20-5.40) L 01/05/24 23:55 Hgb 11.4 g/dL (12.0-16.0) L 01/05/24 23:55 Hct 33.8 % (37.0-47.0) L 01/05/24 23:55 MCV 90.6 fL (81.0-99.0) 01/05/24 23:55 MCH 30.6 pg (27.0-31.0) 01/05/24 23:55 MCHC 33.7 g/dL (32.0-36.0) 01/05/24 23:55 RDW 12.9 % (12.0-15.0) 01/05/24 23:55 Plt Count 185 10^3/uL (130-450) 01/05/24 23:55 MPV 9.8 fL (7.9-10.8) 01/05/24 23:55 Neut # (Auto) 3.4 10^3/uL (1.5-6.6) 01/05/24 23:55 Lymph # (Auto) 0.7 10^3/uL (1.5-3.5) L 01/05/24 23:55 [place] # (Auto) 0.4 10^3/uL (0.0-1.0) 01/05/24 23:55 Eos # (Auto) 0.1 10^3/uL (0.0-0.7) 01/05/24 23:55 Baso # (Auto) 0.0 10^3/uL (0.0-0.1) 01/05/24 23:55 Absolute Nucleated RBC 0.00 x10^3/uL 01/05/24 23:55 Nucleated RBC % 0.0 /100WBC 01/05/24 23:55 PT 10.7 secs (9.9-12.6) 01/03/24 21:42 INR 1.0 (0.8-1.2) 01/03/24 21:42 Sodium 131 mmol/L (135-145) L 01/07/24 04:41 Potassium 3.8 mmol/L (3.5-4.5) 01/07/24 04:41 Chloride 98 mmol/L (101-111) L 01/07/24 04:41 Carbon Dioxide 26 mmol/L (21-32) 01/07/24 04:41 Anion Gap 7.0 (6-13) 01/07/24 04:41 BUN 24 mg/dL (6-20) H 01/07/24 04:41 Creatinine 1.1 mg/dL (0.6-1.3) 01/07/24 04:41 Estimated GFR (MDRD) 48 (>89) L 01/07/24 04:41 Glucose 47 mg/dL (74-104) L* 01/07/24 04:41 POC Whole Bld Glucose 119 mg/dL (70 - 100) H 01/07/24 09:06 Estimat Average Glucose 275 mg/dL (70-100) H 01/05/24 23:55 Hemoglobin A1c % 11.2 % (4.27-6.07) H 01/05/24 23:55 Serum Osmolality 278 mOsmol/kg (280-301) L 01/04/24 07:24 Lactic Acid 0.7 mmol/L (0.5-2.2) 01/03/24 21:42 Calcium 9.8 mg/dL (8.5-10.3) 01/07/24 04:41 Phosphorus 2.7 mg/dL (2.5-5.0) 01/06/24 04:54 Magnesium 1.4 mg/dL (1.7-2.3) L 01/07/24 04:41 Total Bilirubin 0.3 mg/dL (0.2-1.0) 01/05/24 23:55 AST 28 IU/L (10-42) 01/05/24 23:55 ALT 20 IU/L (10-60) 01/05/24 23:55 Alkaline Phosphatase 52 IU/L (42-121) 01/05/24 23:55 Total Protein 6.7 g/dL (6.4-8.9) 01/05/24 23:55 Albumin 3.9 g/dL (3.2-5.5) 01/05/24 23:55 Globulin 2.8 g/dL (2.1-4.2) 01/05/24 23:55 Albumin/Globulin Ratio 1.4 (1.0-2.2) 01/05/24 23:55 Urine Color YELLOW 01/03/24 22:01 Urine Clarity HAZY (CLEAR) 01/03/24 22:01 Urine pH 6.5 PH (5.0-7.5) 01/03/24 22:01 Ur Specific [place] 1.010 (1.002-1.030) 01/03/24 22:01 Urine Protein NEGATIVE mg/dL (NEGATIVE) 01/03/24 22:01 Urine Glucose (UA) 250 mg/dL (NEGATIVE) H 01/03/24 22:01 Urine Ketones NEGATIVE mg/dL (NEGATIVE) 01/03/24 22:01 Urine Occult Blood NEGATIVE (NEGATIVE) 01/03/24 22:01 Urine Nitrite NEGATIVE (NEGATIVE) 01/03/24 22:01 Urine Bilirubin NEGATIVE (NEGATIVE) 01/03/24 22:01 Urine Urobilinogen 0.2 (NORMAL) E.U./dL (NORMAL) 01/03/24 22:01 Ur Leukocyte Esterase SMALL (NEGATIVE) H 01/03/24 22:01 Urine RBC 0-5 /HPF (0-5) 01/03/24 22:01 Urine WBC >25 /HPF (0-5) H 01/03/24 22:01 Urine WBC Clumps PRESENT 01/03/24 22:01 Ur Squamous Epith Cells RARE Squamous (<= Few) 01/03/24 22:01 Urine Bacteria Many /HPF (None Seen) H 01/03/24 22:01 Ur Microscopic Review INDICATED 01/03/24 22:01 Urine Culture Comments INDICATED 01/03/24 22:01 Urine Osmolality 393 mOsmol/kg (.) 01/04/24 05:45 Urine Creatinine 18.4 mg/dL 01/03/24 22:01 Ur Sodium 24 Hour Cancelled 01/03/24 22:01 Ur Sodium Timed Cancelled 01/03/24 22:01 Urine Opiates Screen NEGATIVE (NEGATIVE) 01/03/24 22:01 Ur Buprenorphine Scrn NEGATIVE (NEGATIVE) 01/03/24 22:01 Ur Oxycodone Screen NEGATIVE (NEGATIVE) 01/03/24 22:01 Urine Methadone Screen NEGATIVE (NEGATIVE) 01/03/24 22:01 Ur Barbiturates Screen NEGATIVE (NEGATIVE) 01/03/24 22:01 Ur Tricyclics Screen NEGATIVE (NEGATIVE) 01/03/24 22:01 Ur Phencyclidine Scrn NEGATIVE (NEGATIVE) 01/03/24 22:01 Ur Amphetamine Screen NEGATIVE (NEGATIVE) 01/03/24 22:01 U Methamphetamines Scrn NEGATIVE (NEGATIVE) 01/03/24 22:01 U Benzodiazepines Scrn NEGATIVE (NEGATIVE) 01/03/24 22:01 Urine Cocaine Screen NEGATIVE (NEGATIVE) 01/03/24 22:01 U Cannabinoids Screen NEGATIVE (NEGATIVE) 01/03/24 22:01 Ur Drug Screen Comment CUTOFF CONC BELOW: 01/03/24 22:01 Ethyl Alcohol < 10.0 mg/dL 01/03/24 21:42
[2024-01-07] MEDS: INSULIN LISPRO 300 UNIT/3 ML PEN SUBQ SCH (17:36)
[2024-01-07] MEDS: MAGNESIUM OXIDE 400 MG TABLET PO SCH (21:20)
[2024-01-07] MEDS: SODIUM CHLORIDE 1 GM TABLET PO SCH (21:20)
[2024-01-07] MEDS: cefTRIAXone 1 GM in SODIUM CHLORIDE 0.9% MINIBAG 100 ML IV SCH (21:34)
[2024-01-08 05:53] LABS: CALCIUM 9.8 mg/dL (8.5-10.3); CREATININE 0.9 mg/dL (0.6-1.3); POTASSIUM 5.2 mmol/L (3.5-4.5)
[2024-01-08] MEDS ORDERED: INSULIN GLARGINE-YFGN 300 UNIT/3 ML PEN SUBQ SCH (09:00)
--- NOTE | 2024-01-08 09:10 | PROVIDER PROGRESS NOTE ---
Assessment/Plan - Problem List (1) Hyponatremia Assessment/Plan: Na 121-->125-->127-->128-->131-->128 continue Salt tab Free water <300cc Goal Na>130 (2) DM2 (diabetes mellitus, type 2) Qualifiers: Diabetes mellitus terminal operator insulin use: without terminal operator use Assessment/Plan: Uncontrolled, HbA1C 11.2 patient is not compliant with diet and treatment, due to language barrier and impaired cognitive status Nutrition consult Family education (3) Urinary tract infection Qualifiers: Urinary tract infection type: site unspecified Hematuria presence: without hematuria Qualified Code(s): N39.0 - Urinary tract infection, site not specified Assessment/Plan: Ecoli bacteuria, henriquez-sensitive -On ceftriaxone -total 5 days treatment course (will transition to oral tomorrow) - Current Meds Current Meds: Current Medications Generic Name Dose Route Start Last Admin Trade Name Freq PRN Reason Stop Dose Admin Amlodipine Besylate 5 mg 01/04/24 09:00 01/07/24 09:47 Amlodipine 5 Mg Tablet PO 5 mg DAILY KIMI Administration Aspirin 81 mg 01/04/24 09:00 01/07/24 09:47 Aspirin Ec 81 Mg Tablet PO 81 mg DAILY KIMI Administration Atorvastatin Calcium 10 mg 01/04/24 09:00 01/07/24 09:47 Atorvastatin 10 Mg Tablet PO 10 mg DAILY KIMI Administration Heparin Sodium (Porcine) 5,000 unit 01/04/24 09:00 01/07/24 21:21 Heparin 5,000 Unit/Ml Vial SUBQ 5,000 unit BID KIMI Administration Ceftriaxone Sodium 1 gm/ 100 mls @ 200 mls/hr 01/07/24 22:00 01/07/24 22:34 Sodium Chloride IV 01/10/24 21:59 Infused 2200 KIMI Infusion Insulin Human Lispro 1 - 9 unit 01/04/24 21:00 01/08/24 08:20 Insulin Lispro 300 Unit/3 Ml Pen SUBQ 3 unit 0800,1200,1700,2100 KIMI Administration Protocol Lisinopril 10 mg 01/04/24 11:40 01/07/24 09:47 Lisinopril 5 Mg Tablet PO 10 mg DAILY KIMI Administration Magnesium Oxide 400 mg 01/07/24 21:00 01/07/24 21:20 Magnesium Oxide 400 Mg Tablet PO 01/10/24 09:01 400 mg BID KIMI Administration Metformin HCl 500 mg 01/04/24 17:00 01/08/24 08:19 Metformin 500 Mg Tablet PO 500 mg BIDWM KIMI Administration Multivitamins 1 tab 01/04/24 09:00 01/07/24 09:47 Multivitamin Tablet PO 1 tab DAILY KIMI Administration Sodium Chloride 10 ml 01/04/24 01:00 01/08/24 06:51 Sodium Chloride Flush 0.9% 10 Ml Syringe IVP 10 ml 0100,0900,1700 KIMI Administration Sodium Chloride 1 gm 01/07/24 22:00 01/08/24 06:50 Sodium Chloride 1 Gm Tablet PO 1 gm TID KIMI Administration - Lab Result Fish Bone Diagrams: 01/05/24 23:55 01/08/24 05:19 - Diagnostic Imaging Results Diagnostic Imaging Results: Final report reviewed - Additional Planning My Orders: My Active Orders 01/08/24 05:00 MAGNESIUM [CHEM] Routine 01/08/24 09:08 MAGNESIUM SULFATE 2 GRAMS IV X1 Magnesium Sulfate 2 Gram [Magnesium Sulfate] 2 gm in 50 ml IV ONCE Plan Discussed with:: Patient, Family (neice) Time Spent: 31-60 minutes Subjective - Subjective Patient Reports: Feeling Better (patient has no new complaints, deneis dysuria. Neice and nitrator operator are at bedside during round. Patient's neice quite her job, plan to maritime engineer care of her mom (patient's sister) and patient) Objective Vital Signs: Vital Signs - 24 hr 01/07/24 01/08/24 01/08/24 15:42 01:16 08:00 Temperature 36.6 C 36.2 C L 36.5 C Heart Rate [ 100 61 81 Brachial] Respiratory 16 12 16 Rate Blood Pressure 171/85 H 152/75 H [Left Brachial artery] Blood Pressure 139/72 H [Right Brachial artery] O2 Saturation 98 93 98 Oxygen O2 Source Room air I&O (Last 24 Hrs): Intake and Output Totals x24h 01/06/24 01/07/24 01/08/24 23:59 23:59 23:59 Intake Total 950 1126.333 250 Output Total 2320 1275 750 Balance -1370 -148.667 -500 General: Alert, Cooperative, Other (congnitive imparied) HEENT: PERRLA, EOMI Neck: No JVD Neuro: Non Focal, Other (speech flunt) Cardiovascular: Regular rate Respiratory: No respiratory distress Abdomen: Normal bowel sounds, No tenderness Extremities: No clubbing, No edema, Normal pulses Skin: No rashes - Results Results: Laboratory Results WBC 4.6 x10^3/uL (4.8-10.8) L 01/05/24 23:55 RBC 3.73 10^6/uL (4.20-5.40) L 01/05/24 23:55 Hgb 11.4 g/dL (12.0-16.0) L 01/05/24 23:55 Hct 33.8 % (37.0-47.0) L 01/05/24 23:55 MCV 90.6 fL (81.0-99.0) 01/05/24 23:55 MCH 30.6 pg (27.0-31.0) 01/05/24 23: MCHC 33.7 g/dL (32.0-36.0) 01/05/24 23:55 RDW 12.9 % (12.0-15.0) 01/05/24 23:55 Plt Count 185 10^3/uL (130-450) 01/05/24 23:55 MPV 9.8 fL (7.9-10.8) 01/05/24 23:55 Neut # (Auto) 3.4 10^3/uL (1.5-6.6) 01/05/24 23:55 Lymph # (Auto) 0.7 10^3/uL (1.5-3.5) L 01/05/24 23:55 [place] # (Auto) 0.4 10^3/uL (0.0-1.0) 01/05/24 23:55 Eos # (Auto) 0.1 10^3/uL (0.0-0.7) 01/05/24 23:55 Baso # (Auto) 0.0 10^3/uL (0.0-0.1) 01/05/24 23:55 Absolute Nucleated RBC 0.00 x10^3/uL 01/05/24 23:55 Nucleated RBC % 0.0 /100WBC 01/05/24 23:55 PT 10.7 secs (9.9-12.6) 01/03/24 21:42 INR 1.0 (0.8-1.2) 01/03/24 21:42 Sodium 128 mmol/L (135-145) L 01/08/24 05:19 Potassium 5.2 mmol/L (3.5-4.5) H 01/08/24 05:19 Chloride 97 mmol/L (101-111) L 01/08/24 05:19 Carbon Dioxide 26 mmol/L (21-32) 01/08/24 05:19 Anion Gap 5.0 (6-13) L 01/08/24 05:19 BUN 24 mg/dL (6-20) H 01/08/24 05:19 Creatinine 0.9 mg/dL (0.6-1.3) 01/08/24 05:19 Estimated GFR (MDRD) 61 (>89) L 01/08/24 05:19 Glucose 198 mg/dL (74-104) H 01/08/24 05:19 POC Whole Bld Glucose 190 mg/dL (70 - 100) H 01/08/24 08:04 Estimat Average Glucose 275 mg/dL (70-100) H 01/05/24 23:55 Hemoglobin A1c % 11.2 % (4.27-6.07) H 01/05/24 23:55 Serum Osmolality 278 mOsmol/kg (280-301) L 01/04/24 07:24 Lactic Acid 0.7 mmol/L (0.5-2.2) 01/03/24 21:42 Calcium 9.8 mg/dL (8.5-10.3) 01/08/24 05:19 Phosphorus 2.7 mg/dL (2.5-5.0) 01/06/24 04:54 Magnesium 1.4 mg/dL (1.7-2.3) L 01/07/24 04:41 Total Bilirubin 0.3 mg/dL (0.2-1.0) 01/05/24 23:55 AST 28 IU/L (10-42) 01/05/24 23:55 ALT 20 IU/L (10-60) 01/05/24 23:55 Alkaline Phosphatase 52 IU/L (42-121) 01/05/24 23:55 Total Protein 6.7 g/dL (6.4-8.9) 01/05/24 23:55 Albumin 3.9 g/dL (3.2-5.5) 01/05/24 23:55 Globulin 2.8 g/dL (2.1-4.2) 01/05/24 23:55 Albumin/Globulin Ratio 1.4 (1.0-2.2) 01/05/24 23:55 Urine Color YELLOW 01/03/24 22:01 Urine Clarity HAZY (CLEAR) 01/03/24 22:01 Urine pH 6.5 PH (5.0-7.5) 01/03/24 22:01 Ur Specific [place] 1.010 (1.002-1.030) 01/03/24 22:01 Urine Protein NEGATIVE mg/dL (NEGATIVE) 01/03/24 22:01 Urine Glucose (UA) 250 mg/dL (NEGATIVE) H 01/03/24 22:01 Urine Ketones NEGATIVE mg/dL (NEGATIVE) 01/03/24 22:01 Urine Occult Blood NEGATIVE (NEGATIVE) 01/03/24 22:01 Urine Nitrite NEGATIVE (NEGATIVE) 01/03/24 22:01 Urine Bilirubin NEGATIVE (NEGATIVE) 01/03/24 22:01 Urine Urobilinogen 0.2 (NORMAL) E.U./dL (NORMAL) 01/03/24 22:01 Ur Leukocyte Esterase SMALL (NEGATIVE) H 01/03/24 22:01 Urine RBC 0-5 /HPF (0-5) 01/03/24 22:01 Urine WBC >25 /HPF (0-5) H 01/03/24 22:01 Urine WBC Clumps PRESENT 01/03/24 22:01 Ur Squamous Epith Cells RARE Squamous (<= Few) 01/03/24 22:01 Urine Bacteria Many /HPF (None Seen) H 01/03/24 22:01 Ur Microscopic Review INDICATED 01/03/24 22:01 Urine Culture Comments INDICATED 01/03/24 22:01 Urine Osmolality 393 mOsmol/kg (.) 01/04/24 05:45 Urine Creatinine 18.4 mg/dL 01/03/24 22:01 Ur Sodium 24 Hour Cancelled 01/03/24 22:01 Ur Sodium Timed Cancelled 01/03/24 22:01 Urine Opiates Screen NEGATIVE (NEGATIVE) 01/03/24 22:01 Ur Buprenorphine Scrn NEGATIVE (NEGATIVE) 01/03/24 22:01 Ur Oxycodone Screen NEGATIVE (NEGATIVE) 01/03/24 22:01 Urine Methadone Screen NEGATIVE (NEGATIVE) 01/03/24 22:01 Ur Barbiturates Screen NEGATIVE (NEGATIVE) 01/03/24 22:01 Ur Tricyclics Screen NEGATIVE (NEGATIVE) 01/03/24 22:01 Ur Phencyclidine Scrn NEGATIVE (NEGATIVE) 01/03/24 22:01 Ur Amphetamine Screen NEGATIVE (NEGATIVE) 01/03/24 22:01 U Methamphetamines Scrn NEGATIVE (NEGATIVE) 01/03/24 22:01 U Benzodiazepines Scrn NEGATIVE (NEGATIVE) 01/03/24 22:01 Urine Cocaine Screen NEGATIVE (NEGATIVE) 01/03/24 22:01 U Cannabinoids Screen NEGATIVE (NEGATIVE) 01/03/24 22:01 Ur Drug Screen Comment CUTOFF CONC BELOW: 01/03/24 22:01 Ethyl Alcohol < 10.0 mg/dL 01/03/24 21:42 Sepsis Event Note (H) - Evaluation Current Stage of Sepsis: Ruled out ABX Reporting Has patient been on IV antibiotics over the past 48 hours?: No Current Medications - Current Medications Current Medications: Active Medications Acetaminophen (Acetaminophen 325 Mg Tablet) 650 mg PO Q4HR PRN PRN Reason: Pain 1 to 4, or Fever Amlodipine Besylate (Amlodipine 5 Mg Tablet) 5 mg PO DAILY [facility] Last Admin: 01/08/24 09:15 Dose: 5 mg Aspirin (Aspirin Ec 81 Mg Tablet) 81 mg PO DAILY [facility] Last Admin: 01/08/24 09:15 Dose: 81 mg Atorvastatin Calcium (Atorvastatin 10 Mg Tablet) 10 mg PO DAILY [facility] Last Admin: 01/08/24 09:15 Dose: 10 mg Heparin Sodium (Porcine) (Heparin 5,000 Unit/Ml Vial) 5,000 unit SUBQ BID [facility] Last Admin: 01/08/24 09:16 Dose: 5,000 unit Ceftriaxone Sodium 1 gm/ (Sodium Chloride) 100 mls @ 200 mls/hr IV 2200 [facility] Stop: 01/10/24 21:59 Last Infusion: 01/07/24 22:34 Dose: Infused Insulin Glargine-yfgn (Insulin Glargine-Yfgn 300 Unit/3 Ml Pen) 8 unit SUBQ D AILY [facility] Last Admin: 01/08/24 09:16 Dose: 8 unit Insulin Human Lispro (Insulin Lispro 300 Unit/3 Ml Pen) 1 - 9 unit SUBQ 0800,1200,1700,2100 [facility]; Protocol Last Admin: 01/08/24 12:32 Dose: 5 unit Lisinopril (Lisinopril 5 Mg Tablet) 10 mg PO DAILY [facility] Last Admin: 01/08/24 09:15 Dose: 10 mg Magnesium Oxide (Magnesium Oxide 400 Mg Tablet) 400 mg PO BID [facility] Stop: 01/10/24 09:01 Last Admin: 01/08/24 09:15 Dose: 400 mg Metformin HCl (Metformin 500 Mg Tablet) 500 mg PO BIDWM [facility] Last Admin: 01/08/24 08:19 Dose: 500 mg Multivitamins (Multivitamin Tablet) 1 tab PO DAILY [facility] Last Admin: 01/08/24 09:15 Dose: 1 tab Ondansetron HCl (Ondansetron 4 Mg/2 Ml Vial) 4 mg IVP Q6HR PRN PRN Reason: Nausea / Vomiting Sodium Chloride (Sodium Chloride Flush 0.9% 10 Ml Syringe) 10 ml IVP PRN PRN PRN Reason: NEEDED PER PROVIDER ORDERS Sodium Chloride (Sodium Chloride Flush 0.9% 10 Ml Syringe) 10 ml IVP 0100,0900,1700 [facility] Last Admin: 01/08/24 10:17 Dose: 10 ml Sodium Chloride (Sodium Chloride 1 Gm Tablet) 1 gm PO TID [facility] Last Admin: 01/08/24 13:32 Dose: 1 gm Aspirin EC [Ecotrin] 81 mg PO DAILY 01/03/24 Cholecalciferol (Vitamin D3) [Vitamin D3] 1,250 mcg PO ONCE 01/03/24 Cranberry Fruit Extract [Cranberry] 500 mg PO DAILY 01/03/24 Insulin Glargine [Lantus Solostar] 10 unit SUBQ 01/03/24 Lisinopril [Zestril] 10 mg PO DAILY 01/03/24 Multivitamin 1 each PO DAILY 01/03/24 Simvastatin [Zocor] 20 mg PO QPM 01/03/24 metFORMIN [Glucophage] 500 mg PO BIDWM 01/03/24
[2024-01-08] MEDS: INSULIN GLARGINE-YFGN 300 UNIT/3 ML PEN SUBQ SCH (09:16)
[2024-01-08] MEDS: MAGNESIUM SULFATE 2 GRAM 2 GM/50 ML BAG IV ONE (10:18)
[2024-01-08] MEDS: INSULIN LISPRO 300 UNIT/3 ML PEN SUBQ SCH (17:02)
[2024-01-08] MEDS: SODIUM CHLORIDE FLUSH 0.9% 10 ML SYRINGE IVP PRN (21:29)
[2024-01-09] MEDS: INSULIN GLARGINE-YFGN 300 UNIT/3 ML PEN SUBQ SCH (08:01)
--- NOTE | 2024-01-09 10:33 | PROVIDER PROGRESS NOTE ---
Assessment/Plan - Problem List (1) Hyponatremia Assessment/Plan: Improved, Na 131 today chronic condition, likely due to SIADH fairly difficult to correct continue to have free water restriction continue salt tablets monitoring Na level Medically stable, plan to discharge to home with her niece as a fitness and wellness manager caregiver, SM arranges home safety device (2) DM2 (diabetes mellitus, type 2) Qualifiers: Diabetes mellitus button spindler insulin use: without [facility] use Assessment/Plan: BS has been in good range during hospital stay Recheck A1C level: 11.1, confirmed A1C level continue insulin treatment plans to discharge on insulin (3) Urinary tract infection Qualifiers: Urinary tract infection type: site unspecified Hematuria presence: without hematuria Qualified Code(s): N39.0 - Urinary tract infection, site not specified Assessment/Plan: Switch to oral nitrofurantoin for total 5 days treatment course - Current Meds Current Meds: Current Medications Generic Name Dose Route Start Last Admin Trade Name Freq PRN Reason Stop Dose Admin Amlodipine Besylate 5 mg 01/04/24 09:00 01/09/24 07:51 Amlodipine 5 Mg Tablet PO 5 mg DAILY KIMI Administration Aspirin 81 mg 01/04/24 09:00 01/09/24 07:52 Aspirin Ec 81 Mg Tablet PO 81 mg DAILY KIMI Administration Atorvastatin Calcium 10 mg 01/04/24 09:00 01/09/24 07:50 Atorvastatin 10 Mg Tablet PO 10 mg DAILY KIMI Administration Heparin Sodium (Porcine) 5,000 unit 01/04/24 09:00 01/09/24 07:51 Heparin 5,000 Unit/Ml Vial SUBQ 5,000 unit BID KIMI Administration Ceftriaxone Sodium 1 gm/ 100 mls @ 200 mls/hr 01/07/24 22:00 01/08/24 22:10 Sodium Chloride IV 01/10/24 21:59 Infused 2200 KIMI Infusion Insulin Glargine-yfgn 10 unit 01/09/24 09:00 01/09/24 08:01 Insulin Glargine-Yfgn 300 Unit/3 Ml Pen SUBQ 10 unit DAILY KIMI Administration Insulin Human Lispro 1 - 9 unit 01/04/24 21:00 01/09/24 07:53 Insulin Lispro 300 Unit/3 Ml Pen SUBQ 1 unit 0800,1200,1700,2100 KIMI Administration Protocol Insulin Human Lispro 2 unit 01/08/24 17:00 01/09/24 07:53 Insulin Lispro 300 Unit/3 Ml Pen SUBQ 2 unit TIDWM KIMI Administration Lisinopril 10 mg 01/04/24 11:40 01/09/24 07:50 Lisinopril 5 Mg Tablet PO 10 mg DAILY KIMI Administration Magnesium Oxide 400 mg 01/07/24 21:00 01/09/24 07:51 Magnesium Oxide 400 Mg Tablet PO 01/10/24 09:01 400 mg BID KIMI Administration Metformin HCl 500 mg 01/04/24 17:00 01/09/24 07:51 Metformin 500 Mg Tablet PO 500 mg BIDWM KIMI Administration Multivitamins 1 tab 01/04/24 09:00 01/09/24 07:51 Multivitamin Tablet PO 1 tab DAILY KIMI Administration Sodium Chloride 10 ml 01/04/24 00:40 01/08/24 21:29 Sodium Chloride Flush 0.9% 10 Ml Syringe IVP 10 ml PRN PRN Administration NEEDED PER PROVIDER ORDERS Sodium Chloride 10 ml 01/04/24 01:00 01/09/24 07:50 Sodium Chloride Flush 0.9% 10 Ml Syringe IVP 10 ml 0100,0900,1700 KIMI Administration Sodium Chloride 1 gm 01/07/24 22:00 01/09/24 06:09 Sodium Chloride 1 Gm Tablet PO 1 gm TID KIMI Administration - Lab Result Lab results reviewed: Yes Fish Bone Diagrams: 01/09/24 10:43 01/09/24 10:43 - Additional Planning Condition/Complexity: Improved My Orders: My Active Orders 01/08/24 17:00 Insulin Lispro [Humalog Kwikpen U-100] 2 unit SUBQ TIDWM 01/09/24 BMP - BASIC METABOLIC PANEL [CHEM] Routine CBC - COMP BLD CT W/AUTO DIFF [HEME] Routine HEMOGLOBIN A1c% [CHEM] Routine MAGNESIUM [CHEM] Routine 01/09/24 09:00 Insulin Glargine-Yfgn [Semglee] 10 unit SUBQ DAILY 01/10/24 05:00 BMP - BASIC METABOLIC PANEL [CHEM] DAILYLAB 01/11/24 05:00 BMP - BASIC METABOLIC PANEL [CHEM] DAILYLAB 01/12/24 05:00 BMP - BASIC METABOLIC PANEL [CHEM] DAILYLAB 01/13/24 05:00 BMP - BASIC METABOLIC PANEL [CHEM] DAILYLAB 01/14/24 05:00 BMP - BASIC METABOLIC PANEL [CHEM] DAILYLAB Plan Discussed with:: Patient, Family Time Spent: 31-60 minutes Subjective - Subjective Patient Reports: Feeling Better Objective Vital Signs: Vital Signs - 24 hr 01/08/24 01/09/24 01/09/24:24 00:05 08:00 Temperature 36.5 C 36.5 C 36.5 C Heart Rate [ 85 82 71 Brachial] Respiratory 16 14 16 Rate Blood Pressure 123/63 135/69 H 138/69 H [Right Brachial artery] O2 Saturation 96 96 99 Oxygen O2 Source Room air I&O (Last 24 Hrs): Intake and Output Totals x24h 01/07/24 01/08/24 01/09/24 23:59 23:59 23:59 Intake Total 3550.850 2515 170 Output Total 1275 1625 800 Balance -148.667 125 630 General: Alert, Cooperative HEENT: PERRLA, EOMI Neck: Supple Neuro: Alert, Non Focal Cardiovascular: Regular rate Respiratory: No respiratory distress Abdomen: Soft - Results Results: Laboratory Results WBC 4.6 x10^3/uL (4.8-10.8) L 01/05/24 23:55 RBC 3.73 10^6/uL (4.20-5.40) L 01/05/24 23:55 Hgb 11.4 g/dL (12.0-16.0) L 01/05/24 23:55 Hct 33.8 % (37.0-47.0) L 01/05/24 23:55 MCV 90.6 fL (81.0-99.0) 01/05/24 23:55 MCH 30.6 pg (27.0-31.0) 01/05/24 23:55 MCHC 33.7 g/dL (32.0-36.0) 01/05/24 23:55 RDW 12.9 % (12.0-15.0) 01/05/24 23:55 Plt Count 185 10^3/uL (130-450) 01/05/24 23:55 MPV 9.8 fL (7.9-10.8) 01/05/24 23:55 Neut # (Auto) 3.4 10^3/uL (1.5-6.6) 01/05/24 23:55 Lymph # (Auto) 0.7 10^3/uL (1.5-3.5) L 01/05/24 23:55 [place] # (Auto) 0.4 10^3/uL (0.0-1.0) 01/05/24 23:55 Eos # (Auto) 0.1 10^3/uL (0.0-0.7) 01/05/24 23:55 Baso # (Auto) 0.0 10^3/uL (0.0-0.1) 01/05/24 23:55 Absolute Nucleated RBC 0.00 x10^3/uL 01/05/24 23:55 Nucleated RBC % 0.0 /100WBC 01/05/24 23:55 PT 10.7 secs (9.9-12.6) 01/03/24 21:42 INR 1.0 (0.8-1.2) 01/03/24 21:42 Sodium 128 mmol/L (135-145) L 01/08/24 05:19 Potassium 5.2 mmol/L (3.5-4.5) H 01/08/24 05:19 Chloride 97 mmol/L (101-111) L 01/08/24 05:19 Carbon Dioxide 26 mmol/L (21-32) 01/08/24 05:19 Anion Gap 5.0 (6-13) L 01/08/24 05:19 BUN 24 mg/dL (6-20) H 01/08/24 05:19 Creatinine 0.9 mg/dL (0.6-1.3) 01/08/24 05:19 Estimated GFR (MDRD) 61 (>89) L 01/08/24 05:19 Glucose 198 mg/dL (74-104) H 01/08/24 05:19 POC Whole Bld Glucose 167 mg/dL (70 - 100) H 01/09/24 07:52 Estimat Average Glucose 275 mg/dL (70-100) H 01/05/24 23:55 Hemoglobin A1c % 11.2 % (4.27-6.07) H 01/05/24 23:55 Serum Osmolality 278 mOsmol/kg (280-301) L 01/04/24 07:24 Lactic Acid 0.7 mmol/L (0.5-2.2) 01/03/24 21:42 Calcium 9.8 mg/dL (8.5-10.3) 01/08/24 05:19 Phosphorus 2.7 mg/dL (2.5-5.0) 01/06/24 04:54 Magnesium 1.4 mg/dL (1.7-2.3) L 01/08/24 05:19 Total Bilirubin 0.3 mg/dL (0.2-1.0) 01/05/24 23:55 AST 28 IU/L (10-42) 01/05/24 23:55 ALT 20 IU/L (10-60) 01/05/24 23:55 Alkaline Phosphatase 52 IU/L (42-121) 01/05/24 23:55 Total Protein 6.7 g/dL (6.4-8.9) 01/05/24 23:55 Albumin 3.9 g/dL (3.2-5.5) 01/05/24 23:55 Globulin 2.8 g/dL (2.1-4.2) 01/05/24 23:55 Albumin/Globulin Ratio 1.4 (1.0-2.2) 01/05/24 23:55 Urine Color YELLOW 01/03/24 22:01 Urine Clarity HAZY (CLEAR) 01/03/24 22:01 Urine pH 6.5 PH (5.0-7.5) 01/03/24 22:01 Ur Specific [place] 1.010 (1.002-1.030) 01/03/24 22:01 Urine Protein NEGATIVE mg/dL (NEGATIVE) 01/03/24 22:01 Urine Glucose (UA) 250 mg/dL (NEGATIVE) H 01/03/24 22:01 Urine Ketones NEGATIVE mg/dL (NEGATIVE) 01/03/24 22:01 Urine Occult Blood NEGATIVE (NEGATIVE) 01/03/24 22:01 Urine Nitrite NEGATIVE (NEGATIVE) 01/03/24 22:01 Urine Bilirubin NEGATIVE (NEGATIVE) 01/03/24 22:01 Urine Urobilinogen 0.2 (NORMAL) E.U./dL (NORMAL) 01/03/24 22:01 Ur Leukocyte Esterase SMALL (NEGATIVE) H 01/03/24 22:01 Urine RBC 0-5 /HPF (0-5) 01/03/24 22:01 Urine WBC >25 /HPF (0-5) H 01/03/24 22:01 Urine WBC Clumps PRESENT 01/03/24 22:01 Ur Squamous Epith Cells RARE Squamous (<= Few) 01/03/24 22:01 Urine Bacteria Many /HPF (None Seen) H 01/03/24 22:01 Ur Microscopic Review INDICATED 01/03/24 22:01 Urine Culture Comments INDICATED 01/03/24 22:01 Urine Osmolality 393 mOsmol/kg (.) 01/04/24 05:45 Urine Creatinine 18.4 mg/dL 01/03/24 22:01 Ur Sodium 24 Hour Cancelled 01/03/24 22:01 Ur Sodium Timed Cancelled 01/03/24 22:01 Urine Opiates Screen NEGATIVE (NEGATIVE) 01/03/24 22:01 Ur Buprenorphine Scrn NEGATIVE (NEGATIVE) 01/03/24 22:01 Ur Oxycodone Screen NEGATIVE (NEGATIVE) 01/03/24 22:01 Urine Methadone Screen NEGATIVE (NEGATIVE) 01/03/24 22:01 Ur Barbiturates Screen NEGATIVE (NEGATIVE) 01/03/24 22:01 Ur Tricyclics Screen NEGATIVE (NEGATIVE) 01/03/24 22:01 Ur Phencyclidine Scrn NEGATIVE (NEGATIVE) 01/03/24 22:01 Ur Amphetamine Screen NEGATIVE (NEGATIVE) 01/03/24 22:01 U Methamphetamines Scrn NEGATIVE (NEGATIVE) 01/03/24 22:01 U Benzodiazepines Scrn NEGATIVE (NEGATIVE) 01/03/24 22:01 Urine Cocaine Screen NEGATIVE (NEGATIVE) 01/03/24 22:01 U Cannabinoids Screen NEGATIVE (NEGATIVE) 01/03/24 22:01 Ur Drug Screen Comment CUTOFF CONC BELOW: 01/03/24 22:01 Ethyl Alcohol < 10.0 mg/dL 01/03/24 21:42 Sepsis Event Note (H) - Evaluation Current Stage of Sepsis: Ruled out ABX Reporting Has patient been on IV antibiotics over the past 48 hours?: No
[2024-01-09 10:51] LABS: BASOPHILS # (AUTO) 0.1 10^3/uL (0.0-0.1); BASOPHILS % (AUTO) 1.1 %; EOSINOPHILS # (AUTO) 0.2 10^3/uL (0.0-0.7); HCT - HEMATOCRIT 31.9 % (37.0-47.0); HGB - HEMOGLOBIN 10.5 g/dL (12.0-16.0); LYMPHOCYTES # (AUTO) 1.3 10^3/uL (1.5-3.5); LYMPHOCYTES % (AUTO) 29.8 %; MEAN CORPUSCULAR HEMOGLOBIN 30.6 pg (27.0-31.0); MEAN CORPUSCULAR HGB CONC 32.9 g/dL (32.0-36.0); MEAN PLATELET VOLUME 9.3 fL (7.9-10.8); MONOCYTES # (AUTO) 0.4 10^3/uL (0.0-1.0); MONOCYTES % (AUTO) 8.5 %; NEUTROPHILS # (AUTO) 2.5 10^3/uL (1.5-6.6); NEUTROPHILS % (AUTO) 56.4 %; PLT - PLATELET COUNT 183 10^3/uL (130-450); RED BLOOD COUNT 3.43 10^6/uL (4.20-5.40); RED CELL DISTRIBUTION WIDTH 13.3 % (12.0-15.0); WHITE BLOOD COUNT 4.5 x10^3/uL (4.8-10.8)
[2024-01-09] MEDS: NITROFURANTOIN MACRO 100 MG CAPSULE PO SCH (10:58)
[2024-01-09 11:03] LABS: CALCIUM 9.9 mg/dL (8.5-10.3); MAGNESIUM 1.6 mg/dL (1.7-2.3); POTASSIUM 4.8 mmol/L (3.5-4.5)
[2024-01-09 13:09] LABS: ESTIMATED AVERAGE GLUCOSE 272 mg/dL (70-100); HEMOGLOBIN A1c% 11.1 % (4.27-6.07)
[2024-01-10 05:49] LABS: CALCIUM 9.7 mg/dL (8.5-10.3); CREATININE 1.1 mg/dL (0.6-1.3); POTASSIUM 4.8 mmol/L (3.5-4.5)
--- NOTE | 2024-01-10 10:09 | PROVIDER PROGRESS NOTE ---
Assessment/Plan - Problem List (1) Hyponatremia Assessment/Plan: improved to 134 (2) DM2 (diabetes mellitus, type 2) Qualifiers: Diabetes mellitus long-term insulin use: without long-term use Assessment/Plan: Improved to fasting BS 104, POC BS 140-180 (3) Urinary tract infection Qualifiers: Urinary tract infection type: site unspecified Hematuria presence: without hematuria Qualified Code(s): N39.0 - Urinary tract infection, site not specified Assessment/Plan: Complete treatment course today - Current Meds Current Meds: Current Medications Generic Name Dose Route Start Last Admin Trade Name Freq PRN Reason Stop Dose Admin Amlodipine Besylate 5 mg 01/04/24 09:00 01/10/24 08:29 Amlodipine 5 Mg Tablet PO 5 mg DAILY KIMI Administration Aspirin 81 mg 01/04/24 09:00 01/10/24 08:29 Aspirin Ec 81 Mg Tablet PO 81 mg DAILY KIMI Administration Atorvastatin Calcium 10 mg 01/04/24 09:00 01/10/24 08:30 Atorvastatin 10 Mg Tablet PO 10 mg DAILY KIMI Administration Heparin Sodium (Porcine) 5,000 unit 01/04/24 09:00 01/10/24 08:35 Heparin 5,000 Unit/Ml Vial SUBQ 5,000 unit BID KIMI Administration Insulin Glargine-yfgn 10 unit 01/09/24 09:00 01/10/24 08:34 Insulin Glargine-Yfgn 300 Unit/3 Ml Pen SUBQ 10 unit DAILY KIMI Administration Insulin Human Lispro 1 - 9 unit 01/04/24 21:00 01/10/24 08:30 Insulin Lispro 300 Unit/3 Ml Pen SUBQ Not Given 0800,1200,1700,2100 [facility] Protocol Insulin Human Lispro 2 unit 01/08/24 17:00 01/10/24 08:35 Insulin Lispro 300 Unit/3 Ml Pen SUBQ 2 unit TIDWM KIMI Administration Lisinopril 10 mg 01/04/24 11:40 01/10/24 08:28 Lisinopril 5 Mg Tablet PO 10 mg DAILY KIMI Administration Metformin HCl 500 mg 01/04/24 17:00 01/10/24 08:29 Metformin 500 Mg Tablet PO 500 mg BIDWM KIMI Administration Multivitamins 1 tab 01/04/24 09:00 01/10/24 08:29 Multivitamin Tablet PO 1 tab DAILY KIMI Administration Nitrofurantoin 100 mg 01/09/24 11:00 01/10/24 08:32 Nitrofurantoin Macro 100 Mg Capsule PO 01/10/24 22:00 100 mg BID KIMI Administration Sodium Chloride 10 ml 01/04/24 00:40 01/08/24 21:29 Sodium Chloride Flush 0.9% 10 Ml Syringe IVP 10 ml PRN PRN Administration NEEDED PER PROVIDER ORDERS Sodium Chloride 10 ml 01/04/24 01:00 01/10/24 08:28 Sodium Chloride Flush 0.9% 10 Ml Syringe IVP 10 ml 0100,0900,1700 KIMI Administration Sodium Chloride 1 gm 01/07/24 22:00 01/10/24 05:18 Sodium Chloride 1 Gm Tablet PO 1 gm TID KIMI Administration - Lab Result Lab results reviewed: Yes Fish Bone Diagrams: 01/09/24 10:43 01/10/24 05:19 - Additional Planning Condition/Complexity: Improved My Orders: My Active Orders 01/09/24 11:00 Nitrofurantoin [Macrobid] 100 mg PO BID 01/11/24 05:00 BMP - BASIC METABOLIC PANEL [CHEM] DAILYLAB 01/12/24 05:00 BMP - BASIC METABOLIC PANEL [CHEM] DAILYLAB 01/13/24 05:00 BMP - BASIC METABOLIC PANEL [CHEM] DAILYLAB 01/14/24 05:00 BMP - BASIC METABOLIC PANEL [CHEM] DAILYLAB Plan Discussed with:: Patient, Family Subjective - Subjective Patient Reports: Feeling Better Objective Vital Signs: Vital Signs - 24 hr 01/09/24 01/10/24 01/10/24 16:00 00:00 07:46 Temperature 36.7 C 37.1 C 36.6 C Heart Rate [ 91 70 Brachial] Heart Rate [ 77 Monitoring electrodes] Respiratory 16 15 16 Rate Blood Pressure 118/55 L 122/62 119/58 L [Left Brachial artery] O2 Saturation 98 97 93 Oxygen O2 Source Room air I&O (Last 24 Hrs): Intake and Output Totals x24h 01/08/24 01/09/24 01/10/24 23:59 23:59 23:59 Intake Total 1500 690 Output Total 1625 2495 450 Balance -125 -935 -450 General: Alert, Cooperative HEENT: PERRLA, EOMI Neck: No JVD Neuro: Alert Cardiovascular: Regular rate Respiratory: No respiratory distress Extremities: No edema - Results Results: Laboratory Results WBC 4.5 x10^3/uL (4.8-10.8) L 01/09/24 10:43 RBC 3.43 10^6/uL (4.20-5.40) L 01/09/24 10:43 Hgb 10.5 g/dL (12.0-16.0) L 01/09/24 10:43 Hct 31.9 % (37.0-47.0) L 01/09/24 10:43 MCV 93.0 fL (81.0-99.0) 01/09/24 10:43 MCH 30.6 pg (27.0-31.0) 01/09/24 10:43 MCHC 32.9 g/dL (32.0-36.0) 01/09/24 10:43 RDW 13.3 % (12.0-15.0) 01/09/24 10:43 Plt Count 183 10^3/uL (130-450) 01/09/24 10:43 MPV 9.3 fL (7.9-10.8) 01/09/24 10:43 Neut # (Auto) 2.5 10^3/uL (1.5-6.6) 01/09/24 10:43 Lymph # (Auto) 1.3 10^3/uL (1.5-3.5) L 01/09/24 10:43 [place] # (Auto) 0.4 10^3/uL (0.0-1.0) 01/09/24 10:43 Eos # (Auto) 0.2 10^3/uL (0.0-0.7) 01/09/24 10:43 Baso # (Auto) 0.1 10^3/uL (0.0-0.1) 01/09/24 10:43 Absolute Nucleated RBC 0.00 x10^3/uL 01/09/24 10:43 Nucleated RBC % 0.0 /100WBC 01/09/24 10:43 PT 10.7 secs (9.9-12.6) 01/03/24 21:42 INR 1.0 (0.8-1.2) 01/03/24 21:42 Sodium 134 mmol/L (135-145) L 01/10/24 05:19 Potassium 4.8 mmol/L (3.5-4.5) H 01/10/24 05:19 Chloride 102 mmol/L (101-111) 01/10/24 05:19 Carbon Dioxide 27 mmol/L (21-32) 01/10/24 05:19 Anion Gap 5.0 (6-13) L 01/10/24 05:19 BUN 31 mg/dL (6-20) H 01/10/24 05:19 Creatinine 1.1 mg/dL (0.6-1.3) 01/10/24 05:19 Estimated GFR (MDRD) 48 (>89) L 01/10/24 05:19 Glucose 104 mg/dL (74-104) 01/10/24 05:19 POC Whole Bld Glucose 130 mg/dL (70 - 100) H 01/10/24 07:40 Estimat Average Glucose 272 mg/dL (70-100) H 01/09/24 10:43 Hemoglobin A1c % 11.1 % (4.27-6.07) H 01/09/24 10:43 Serum Osmolality 278 mOsmol/kg (280-301) L 01/04/24 07:24 Lactic Acid 0.7 mmol/L (0.5-2.2) 01/03/24 21:42 Calcium 9.7 mg/dL (8.5-10.3) 01/10/24 05:19 Phosphorus 2.7 mg/dL (2.5-5.0) 01/06/24 04:54 Magnesium 1.6 mg/dL (1.7-2.3) L 01/09/24 10:43 Total Bilirubin 0.3 mg/dL (0.2-1.0) 01/05/24 23:55 AST 28 IU/L (10-42) 01/05/24 23:55 ALT 20 IU/L (10-60) 01/05/24 23:55 Alkaline Phosphatase 52 IU/L (42-121) 01/05/24 23:55 Total Protein 6.7 g/dL (6.4-8.9) 01/05/24 23:55 Albumin 3.9 g/dL (3.2-5.5) 01/05/24 23:55 Globulin 2.8 g/dL (2.1-4.2) 01/05/24 23:55 Albumin/Globulin Ratio 1.4 (1.0-2.2) 01/05/24 23:55 Urine Color YELLOW 01/03/24 22:01 Urine Clarity HAZY (CLEAR) 01/03/24 22:01 Urine pH 6.5 PH (5.0-7.5) 01/03/24 22:01 Ur Specific [place] 1.010 (1.002-1.030) 01/03/24 22:01 Urine Protein NEGATIVE mg/dL (NEGATIVE) 01/03/24 22:01 Urine Glucose (UA) 250 mg/dL (NEGATIVE) H 01/03/24 22:01 Urine Ketones NEGATIVE mg/dL (NEGATIVE) 01/03/24 22:01 Urine Occult Blood NEGATIVE (NEGATIVE) 01/03/24 22: Urine Nitrite NEGATIVE (NEGATIVE) 01/03/24 22:01 Urine Bilirubin NEGATIVE (NEGATIVE) 01/03/24 22:01 Urine Urobilinogen 0.2 (NORMAL) E.U./dL (NORMAL) 01/03/24 22:01 Ur Leukocyte Esterase SMALL (NEGATIVE) H 01/03/24 22:01 Urine RBC 0-5 /HPF (0-5) 01/03/24 22:01 Urine WBC >25 /HPF (0-5) H 01/03/24 22:01 Urine WBC Clumps PRESENT 01/03/24 22:01 Ur Squamous Epith Cells RARE Squamous (<= Few) 01/03/24 22:01 Urine Bacteria Many /HPF (None Seen) H 01/03/24 22:01 Ur Microscopic Review INDICATED 01/03/24 22:01 Urine Culture Comments INDICATED 01/03/24 22:01 Urine Osmolality 393 mOsmol/kg (.) 01/04/24 05:45 Urine Creatinine 18.4 mg/dL 01/03/24 22:01 Ur Sodium 24 Hour Cancelled 01/03/24 22:01 Ur Sodium Timed Cancelled 01/03/24 22:01 Urine Opiates Screen NEGATIVE (NEGATIVE) 01/03/24 22:01 Ur Buprenorphine Scrn NEGATIVE (NEGATIVE) 01/03/24 22:01 Ur Oxycodone Screen NEGATIVE (NEGATIVE) 01/03/24 22:01 Urine Methadone Screen NEGATIVE (NEGATIVE) 01/03/24 22:01 Ur Barbiturates Screen NEGATIVE (NEGATIVE) 01/03/24 22:01 Ur Tricyclics Screen NEGATIVE (NEGATIVE) 01/03/24 22:01 Ur Phencyclidine Scrn NEGATIVE (NEGATIVE) 01/03/24 22:01 Ur Amphetamine Screen NEGATIVE (NEGATIVE) 01/03/24 22:01 U Methamphetamines Scrn NEGATIVE (NEGATIVE) 01/03/24 22:01 U Benzodiazepines Scrn NEGATIVE (NEGATIVE) 01/03/24 22:01 Urine Cocaine Screen NEGATIVE (NEGATIVE) 01/03/24 22:01 U Cannabinoids Screen NEGATIVE (NEGATIVE) 01/03/24 22:01 Ur Drug Screen Comment CUTOFF CONC BELOW: 01/03/24 22:01 Ethyl Alcohol < 10.0 mg/dL 01/03/24 21:42 Sepsis Event Note (H) - Evaluation Current Stage of Sepsis: Ruled out ABX Reporting Has patient been on IV antibiotics over the past 48 hours?: No
--- NOTE | 2024-01-10 12:55 | Discharge Plan ---
Discharge Plan Problem Reviewed?: Yes Disposition: Home, Self Care Condition: Stable Prescriptions: Insulin Lispro [Humalog Kwikpen U-100] 2 unit SUBQ TIDWM 30 Days ml Insulin Detemir [Levemir] 10 unit SUBQ DAILY 30 Days #3 ml amLODIPine [Norvasc] 5 mg PO DAILY 30 Days #30 tab Sodium Chloride [Salt Tab] 1 gm PO TID 14 Days #42 tab Diet: Diabetic Activity Restrictions: Activity as Tolerated Shower Restrictions: No Driving Restrictions: Yes Assistance Devices: Walker Weight Bearing: Full Weight Instruction Topics: Hyponatremia Dc, Diabetes Healthy Meals Health Concerns: Your weakness may be related to electrolytes abnormality and UTI. You Sodium Na 121 was low when you came, now improved to 134. Continue take salt tablet, confine your water intake. Follow up with your primary care provider for Blood check (BMP in two weeks), further adjustment of your salt intake after the blood test. You have received iv antibiotic ceftriaxone during hospital stay and oral nitrofurnantoin, you completed treatment course. Your Blood sugar was not very well controlled, your A1C level of 11.2, you needs to use insulin to control your sugar better before consider just using oral DM meds Plan of Treatment: Continue with PT/OT, improve function Have better blood sugar controll Monitoring your electrolytes Care Goals: Maintain function as much as you can Assessment: medically stable for discharge Additional Instructions or Follow Up instructions: She does have a small thyroid nodule which needs a nonemergent follow-up ultrasound. Follow-Up Care: Dietitian, Outpatient Rehab - PT, Outpatient Rehab - OT No Smoking: If you smoke, Please STOP! Call for help.
--- NOTE | 2024-01-10 13:09 | DISCHARGE SUMMARY ---
Discharge Summary Admit Date: 01/04/24 Discharge Date: 01/10/24 Discharging Provider: Diego Pop Code Status: Do Not Attempt Resuscitation Condition at Discharge: Stable Discharge Disposition: Home Health Service - DIAGNOSES Admission Diagnoses: Hyponatrimia Discharge Diagnoses with Status of Each Condition: Hyponatremia, improved UTI, resolved DM2, improved HTN, improved Dementia, stable - HPI History of Present Illness: 73F c hypertension and DM2 and dementia who was brought into the ED by niece for worsening mentation and foul smelling urine. Patient is mostly in bed. She has dementia and minimally interactive. Since a week ago, patient has had malodorous urine. Niece took patient to PCP and was told to collect urine for urine studies. This past Sunday, niece was finally able to collect sample and sent to lab. Tonight, patient was less response to niece. Usually patient would turn her head and acknowledge niece but tonight patient did not. Niece reports patient would get this way with a UTI or low salt level. Patient had low salt level in the past and was suppose to take extra salt via diet. She is on lisinopril for blood pressure. No new meds. No change in meds. No vomiting or diarrhea. Niece said patient taking po. Here in the ED, CT brain and CTA head negative. Na 121. UA mild leukocyte est positive and nitrite negative. - HOSPITAL COURSE Hospital Course: During hospital stay, patient was given salt tablet, free water restriction, Na lever improved, mental status back to baseline, demented but pleasant. UTI was treated with 4 days iv ceftrioxone and two days nitrofurantoin, no urinary complaints after patient was started on iv antibiotic. Patient's DM is not controlled, A1C 11.2, give insulin long acting and meal coverage, BS improved to better range wit fasting BS 104, POC BS 140-180. Patient is still weak, needs therapeutic recreation assistant for getting out of bed, moving to chair. PT/OT recommends SNF, however, with patient's dementia, and language barrier, patient's niece will be radio time buyer caregiver at home, patient will be better off to be discharged to home with home health, PT/OT. Patient is discharged to home on 01/10/2024 in stable condition. Na improved to 134, other electrolytes abnomality has been corrected. - ALLERGIES Allergies/Adverse Reactions: Allergies Allergy/AdvReac Type Severity Reaction Status Date / Time No Known Drug Allergies Allergy Verified 01/03/24 21:26 - MEDICATIONS Home Medications: Ambulatory Orders Medication Instructions Recorded Confirmed Aspirin EC [Ecotrin] 81 mg PO DAILY 01/03/24 01/03/24 Cholecalciferol (Vitamin D3) 1,250 mcg PO ONCE 01/03/24 01/03/24 [Vitamin D3] Cranberry Fruit Extract [Cranberry] 500 mg PO DAILY 01/03/24 01/03/24 Insulin Glargine [Lantus Solostar] 10 unit SUBQ HS 01/03/24 01/03/24 Lisinopril [Zestril] 10 mg PO DAILY 01/03/24 01/03/24 Multivitamin 1 each PO DAILY 01/03/24 01/03/24 Simvastatin [Zocor] 20 mg PO QPM 01/03/24 01/04/24 metFORMIN [Glucophage] 500 mg PO BIDWM 01/03/24 01/03/24 Insulin Detemir [Levemir] 10 unit SUBQ DAILY 30 Days #3 ml 01/10/24 Insulin Lispro [Humalog Kwikpen 2 unit SUBQ TIDWM 30 Days ml 01/10/24 U-100] Sodium Chloride [Salt Tab] 1 gm PO TID 14 Days #42 tab 01/10/24 amLODIPine [Norvasc] 5 mg PO DAILY 30 Days #30 tab 01/10/24 - PHYSICAL EXAM AT DISCHARGE General Appearance: positive: Alert, Other (cognitive impaired) Eyes Bilateral: positive: PERRL, EOMI ENT: positive: ENT inspection nml Neck: positive: No JVD Respiratory: positive: No respiratory distress Cardiovascular: positive: Regular rate & rhythm Peripheral Pulses: positive: 2+ Abdomen: positive: Non-tender Back: positive: Nml inspection Skin: positive: Warm, Dry Extremities: positive: No pedal edema Neurologic/Psychiatric: positive: CN's nml (2-12) - LABS Result Diagrams: 01/09/24 10:43 01/10/24 05:19 - SEPSIS Current Stage of Sepsis: Ruled out - TIME SPENT Time Spent in Discharge (Minutes): 55
[2024-01-10 14:14] VITALS: BP 107/62; O2SAT 97
== END 2024-01-10 16:15 | disposition home health service (06) | DRG 641 ==
LOC: EDUNIT# → ED 21:22 → MS3 01-04 00:40 → MS2 01-05 16:24
PROVIDERS: ADMIT Internal Medicine; ATTEND Internal Medicine
DX: E87.1 Hypo-osmolality and hyponatremia (principal); N39.0 Urinary tract infection, site not specified; G93.40 Encephalopathy, unspecified; B96.20 Unspecified Escherichia coli [E. coli] as the cause of diseases classified elsewhere; E04.1 Nontoxic single thyroid nodule; I10 Essential (primary) hypertension; E11.649 Type 2 diabetes mellitus with hypoglycemia without coma; F03.90 Unspecified dementia, unspecified severity, without behavioral disturbance, psychotic disturbance, mood disturbance, and anxiety; E11.65 Type 2 diabetes mellitus with hyperglycemia; R53.1 Weakness; E78.5 Hyperlipidemia, unspecified
CPT/HCPCS: 36415; 51701; 70450; 70496; 70498; 80048; 80051; 80053; 80306; 81001; 82077; 82570; 83036; 83605; 83735; 83930; 83935; 84100; 85025; 85610; 87086; 87181; 93005; 96374; 97162; 97166; 97530; 97535; 99285; A9270; J1815; J7060; Q9967; 81003; 84300

== ENCOUNTER 2024-03-21 08:00 | Outpatient (CLI) | payer MEDICAID | END 2024-03-21 23:59 | disposition home or self-care (01) | LOC: LAB.N 08:00 | PROVIDERS: ATTEND Family Medicine | DX: R30.0 Dysuria (principal) | CPT/HCPCS: 87086; 87181 ==